=== PATIENT | female | born 1990 | race Caucasian/White ===

== ENCOUNTER 2019-02-18 11:37 | Inpatient (IN) ==
[2019-02-18] MEDS ORDERED: OXYTOCIN 30 UNITS/500 ML BAG IV PRN (13:58)
[2019-02-18] MEDS ORDERED: PENICILLIN G POTASSIUM 6 MU in DEXTROSE 5% 250 ML IV ONE (14:15)
[2019-02-18 14:31] LABS: Hematocrit (blood only) 38.6 % (37-47); Hemoglobin 13.8 g/dL (12.0-16.0); Mean Corpuscular Hemoglobin 33.9 pg (25-34); Mean Corpuscular Hgb Conc 35.8 g/dL (32-36); Mean Corpuscular Volume 94.8 fL (80-100); Platelet Count 166 K/uL (130-400); RDW Standard Deviation 44.7 fL (36.4-46.3); Red Blood Count 4.07 M/uL (4.2-5.4); White Blood Count 10.75 K/uL (4.8-10.8)
[2019-02-18] MEDS ORDERED: DINOPROSTONE 10 MG INSERT PV ONE (15:02)
--- NOTE | 2019-02-18 15:05 | Obstetrical Progress Note ---
Date of Service February 18, 2019 Subjective Admit Note 28 F P0000 at 40.6 weeks admitted for induction of labor for post-dates. Her GBS is negative. FHT Cat 1 with no contractions. Cervix is closed/50/- 3/vertex/posterior/firm. Will place Cervidil for cervical ripening. Results & Data Vital Signs (Past 12 Hours) Vital Signs Temp Pulse Resp BP 02/18/19 14:38 36.6 C 113 H 20 127/87
--- NOTE | 2019-02-18 15:21 | Obstetrical Progress Note ---
Date of Service February 18, 2019 Physical Exam Physical Exam: Cervidil placed vaginally FHT Cat 1 Results & Data Vital Signs (Past 12 Hours) Vital Signs Temp Pulse Resp BP 02/18/19 14:38 36.6 C 113 H 20 127/87
[2019-02-19] MEDS: LACTATED RINGER'S 1,000 ML IV PRN ×3 (00:51→13:30)
[2019-02-19] MEDS ORDERED: OXYTOCIN 30 UNITS/500 ML BAG IV PRN (02:34)
[2019-02-19] MEDS ORDERED: BUTORPHANOL TARTRATE 1 MG/ML VIAL IV PRN ×2 (03:56→03:57)
[2019-02-19] MEDS: PENICILLIN G POTASSIUM 3 MU in DEXTROSE 5% 100 ML IV PRN ×3 (04:57→13:09)
[2019-02-19] MEDS ORDERED: fentaNYL citrate 100 MCG/2 ML VIAL ONE ×2 (05:55→16:54)
[2019-02-19] MEDS ORDERED: ePHEDrine sulfate 50 MG/ML AMP ONE (05:55)
[2019-02-19] MEDS ORDERED: BUPIVACAINE 0.25% 30 ML VIAL ONE (05:56)
[2019-02-19] MEDS ORDERED: fentaNYL 2MCG/ML ROPIV 1.25MG/ML 100 ML BAG EPI ONE (05:56)
--- NOTE | 2019-02-19 06:49 | Anesthesiology Consultation ---
Date of Service February 19, 2019 Assessment & Plan Chart Review Chart Review: Acceptable Risk for Labor Epidural ASA ASA2 Proposed Anesthesia Risk / Benefits Reviewed With: PT / POA / Parent / Guardian, Accepts Plan and Informed Consent Obtained History Height/Weight Height: 5 ft 5 in Weight: 99.79 kg Allergies Allergy/AdvReac Type Severity Reaction Status Date / Time No Known Allergies Allergy Unverified 02/18/19 13:58 Medications Home Medications Medication Instructions Recorded Confirmed Last Taken [place]-3 Fish Oil 1,000 mg PO DAILY 02/18/19 02/18/19 02/17/19 21:30 Vitamin D3 10 mcg PO DAILY 02/18/19 02/18/19 02/17/19 21:30 cetirizine 10 mg PO DAILY 02/18/19 02/18/19 02/17/19 21:30 fluticasone propionate [Flonase 2 spray INTRANASAL DAILY 02/18/19 02/18/1902/07 21:30 Allergy Relief] vit no.[id number] 1 tab PO HS 02/18/19 02/18/19 02/17/19 21:30 [ Vitamin] Active Medications Generic Name Dose Route Start Last Admin Trade Name Freq PRN Reason Stop Dose Admin Butorphanol Tartrate 1 mg 02/19/19 03:56 02/19/19 04:13 Stadol IV 03/21/19 03:55 1 mg Q2R PRN Administration Pain Lactated Ringer's 1,000 mls @ 125 mls/hr 02/18/19 13:58 02/19/19 07:17 Lr IV 02/20/19 13:57 125 mls/hr .Q8H PRN Administration L&D Protocol Protocol Penicillin G Potassium 3 mu/ 106 mls @ 100 mls/hr 02/18/19 13:58 02/19/19 06:00 Dextrose IV 02/28/19 13:57 Infused Q4H PRN Titration Give until delivery Oxytocin 30 units in 500 mls @ 3 mls/hr 02/19/19 02:34 02/19/19 07:00 Pitocin IV 02/21/19 02:33 0.18 units/hr .Q24H PRN 3 mls/hr Labor Induction/Augmentation Titration Protocol 0.18 UNITS/HR Past Medical History Medical History (Updated 02/18/19 @ 14:19 by Becca Jiménez RN) Compartment syndrome of right lower extremity (~11/01/10) Fracture, phalanx, foot (~10/01/95) Exercise / Class Metabolic Activity II 4-5 Yardwork/Stairs/Walk up hill Past Family History Family History (Updated 02/18/19 @ 14:22 by Becca Jiménez RN) Father Hypertension Past Anesthesia History No Hx of Anesthesia Complications and No Family Hx of Anesthesia Complications History of PONV No Hx of PONV and No Hx of Motion Sickness Social History Smoking Status: Never smoker Do You Dip or Chew Tobacco: No Hx Alcohol Use: No Hx Substance Use: No Physical Exam Vital Signs Last Vital Signs Temp 36.4 C L 02/19/19 06:20 Pulse 94 H 02/19/19 07:21 Resp 18 02/19/19 06:20 BP 111/67 02/19/19 07:21 Pulse Ox 96 02/19/19 07:19 ENMT Mouth: no TMJ abnormality and no dentition abnormality Thyromental Distance: > or= 3.5 Finger Breadths Mallampati Class: II Neck neck extension not limited Respiratory normal respiratory effort; no respiratory distress Auscultation: lungs clear to auscultation bilaterally Cardiovascular Rate/Rhythm: regular rate and regular rhythm Neurologic moves all extremities Psychiatric Orientation: alert and oriented x 3 Testing Laboratory Results 02/18/19 14:16
[2019-02-19] MEDS ORDERED: NALBUPHINE HCL INJ 10 MG/ML AMP IV PRN (07:24)
[2019-02-19] MEDS ORDERED: ePHEDrine sulfate 50 MG/ML AMP IV PRN ×2 (07:24→17:22)
[2019-02-19] MEDS ORDERED: NALOXONE HCL 0.4 MG/1 ML VIAL/CARP IV PRN (07:24)
[2019-02-19] MEDS ORDERED: DiphenhydrAMINE HCL 50 MG/ML VIAL IV PRN ×2 (07:24→17:59)
[2019-02-19] MEDS ORDERED: ONDANSETRON INJ 2 MG/ML 2 ML VIAL IV PRN ×3 (07:24→17:59)
[2019-02-19] MEDS ORDERED: fentaNYL 2MCG/ML ROPIV 1.25MG/ML 100 ML BAG EPI PRN (07:24)
[2019-02-19] MEDS ORDERED: NALOXONE HCL 1 MG in SODIUM CHLORIDE 0.9% 1000ML 1,000 ML IV PRN (07:24)
--- NOTE | 2019-02-19 08:36 | Obstetrical Progress Note ---
Date of Service February 19, 2019 Subjective Met pt and spouse doing well induction for prolonged gestation On Pitocin last exam was 2-3cm epidural analgesia in place Results & Data Vital Signs (Past 12 Hours) Vital Signs Temp Pulse Resp BP Pulse Ox 02/19/19 08:34 74 100 02/19/19 08:29 72 97 02/19/19 08:24 74 96 02/19/19 08:23 77 123/83 02/19/19 08:19 72 96 02/19/19 08:14 87 98 02/19/19 08:09 88 97 02/19/19 08:06 82 149/88 H 02/19/19 08:04 79 97 02/19/19 08:00 81 111/79 02/19/19 07:59 74 97 02/19/19 07:55 78 124/77 02/19/19 07:54 82 98 02/19/19 07:51 73 122/70 02/19/19 07:49 81 97 02/19/19 07:45 78 120/79 02/19/19 07:44 79 96 02/19/19 07:41 87 108/72 02/19/19 07:39 87 97 02/19/19 07:35 81 124/66 02/19/19 07:34 86 96 02/19/19 07:30 80 114/66 02/19/19 07:29 75 97 02/19/19 07:25 82 122/71 02/19/19 07:24 88 98 02/19/19 07:23 96 H 113/67 02/19/19 07:21 94 H 111/67 02/19/19 07:19 82 109/66 96 02/19/19 07:17 84 119/63 02/19/19 07:15 93 H 118/65 02/19/19 07:14 91 H 97 02/19/19 07:13 97 H 121/77 02/19/19 07:10 93 H 137/92 02/19/19 07:09 92 H 97 02/19/19 07:04 95 H 98 02/19/19 06:59 96 H 99 02/19/19 06:54 101 H 98 02/19/19 06:21 90 139/88 02/19/19 06:20 36.4 C L 18 02/19/19 06:12 91 H 96 12/13/19 06:11 81 92 13/19 06:07 79 92 02/19/19 06:03 79 91 02/19/19 06:02 86 99 02/19/19 05:57 101 H 95 13/19 05:52 79 95 13/19 05:47 85 98 13/19 05:42 77 97 13/19 05:37 98 H 98 02/19/19 05:32 74 96 13/19 05:27 79 96 13/19 05:22 81 97 13/19 05:20 88 18 136/92 02/19/19 05:17 75 95 02/19/19 05:12 73 95 02/19/19 05:07 86 99 02/19/19 05:02 88 97 02/19/ 05:00 16 02/19/19 04:57 75 97 02/19/ 04:52 74 96 02/19/19 04:47 69 95 02/19/19 04:42 69 96 19 04:37 79 97 02/19/19 04:32 82 97 02/19/19 04:27 85 97 02/19/19 04:22 77 95 02/19/19 04:21 87 94 02/19/19 04:17 83 99 19 04:14 103 H 125/83 02/19/19 04:12 74 99 19 04:10 36.6 C 18 02/19/19 04:08 61 153/91 H 02/19/19 04:07 97 H 96 02/19/19 02:21 36.5 C 13/19 00:45 36.5 C 02/18/19 23:10 36.7 C 18 02/18/19 23:08 82 128/84
--- NOTE | 2019-02-19 13:29 | Obstetrical Progress Note ---
Date of Service February 19, 2019 Subjective Called to evaluate pt with CAT II strip VE; 5/90/-2 Pit 4Mu IUPC and scalp placed Fetus responded to scalp continue to monitor Results & Data Vital Signs (Past 12 Hours) Vital Signs Temp Pulse Resp BP Pulse Ox 02/19/19 13:24 87 99 02/19/19 13:23 92 H 126/81 02/19/19 13:19 77 99 02/19/19 13:14 79 99 02/19/19 13:09 76 113/67 99 02/19/19 13:04 87 98 02/19/19 12:59 80 97 02/19/19 12:54 80 98 02/19/19 12:53 86 106/72 02/19/19 12:49 82 98 02/19/19 12:46 20 02/19/19 12:44 83 98 02/19/19 12:40 73 110/75 02/19/19 12:39 70 98 02/19/19 12:34 80 98 02/19/19 12:29 69 98 02/19/19 12:26 78 121/80 02/19/19 12:24 82 22 98 02/19/19 12:19 81 97 02/19/19 12:14 88 97 02/19/19 12:09 75 96 02/19/19 12:08 74 122/82 02/19/19 12:04 73 96 02/19/19 11:59 72 97 02/19/19 11:54 68 96 02/19/19 11:53 70 117/76 02/19/19 11:49 75 96 02/19/19 11:44 91 H 97 02/19/19 11:39 71 108/71 98 02/19/19 11:34 68 97 02/19/19 11:29 78 98 02/19/19 11:24 85 98 02/19/19 11:23 83 20 124/83 02/19/19 11:19 82 98 02/19/19 11:14 89 99 02/19/19 11:09 76 128/77 98 02/19/19 11:06 36.9 C 02/19/19 11:04 83 98 02/19/19 10:59 81 98 02/19/19 10:54 95 H 97 02/19/19 10:53 88 110/65 12/13/19 10:49 78 98 12/13/19 10:46 20 12/13/19 10:44 64 97 12/13/19 10:39 69 97 12/13/19 10:38 71 111/67 12/13/19 10:34 64 96 12/13/19 10:29 70 98 12/13/19 10:24 79 98 12/13/19 10:23 76 110/64 12/13/19 10:19 77 99 12/13/19 10:16 20 /13/19 10:14 83 98 12/13/19 10:09 80 98 12/13/19 10:08 71 107/63 12/13/19 10:04 69 97 12/13/19 09:59 80 98 12/13/19 09:54 75 97 12/13/19 09:53 84 111/69 12/13/19 09:49 77 98 12/13/19 09:44 84 97 /13/19 09:39 70 97 /13/19 09:38 72 112/68 1213/19 09:34 66 96 12/13/19 09:29 67 96 12/13/19 09:24 72 97 12/13/19 09:23 69 111/65 12/13/19 09:21 36.7 C 20 //19 09:19 82 100 /13/19 09:14 67 98 12/13/19 09:10 81 110/73 12/13/19 09:09 79 100 /13/19 09:05 20 /13/19 09:04 70 99 12/13/19 08:59 71 98 13/19 08:54 65 110/62 100 12/13/19 08:51 20 /13/19 08:49 69 99 12/13/19 08:44 63 100 12/13/19 08:40 65 105/67 12/13/19 08:39 65 99 12/13/19 08:34 74 100 12/13/19 08:29 72 97 /13/19 08:24 74 96 12/13/19 08:23 77 123/83 12/13/19 08:21 20 12/13/19 08:19 72 96 12/13/19 08:14 87 98 13/19 08:09 88 97 12/13/19 08:06 82 20 149/88 H 02/19/19 08:04 79 97 02/19/19 08:00 81 111/79 02/19/19 07:59 74 97 02/19/19 07:55 78 124/77 02/19/19 07:54 82 98 02/19/19 07:51 73 20 122/70 02/19/19 07:49 81 97 02/19/19 07:45 78 120/79 02/19/19 07:44 79 96 02/19/19 07:41 87 108/72 02/19/19 07:39 87 97 02/19/19 07:35 81 20 124/66 02/19/19 07:34 86 96 02/19/19 07:30 80 114/66 02/19/19 07:29 75 97 02/19/19 07:25 82 122/71 02/19/19 07:24 88 98 02/19/19 07:23 96 H 113/67 02/19/19 07:21 94 H 111/67 02/19/19 07:20 36.6 C 20 02/19/19 07:19 82 109/66 96 02/19/19 07:17 84 119/63 02/19/19 07:15 93 H 118/65 02/19/19 07:14 91 H 97 02/19/19 07:13 97 H 121/77 02/19/19 07:10 93 H 137/92 02/19/19 07:09 92 H 97 02/19/19 07:04 95 H 98 02/19/19 06:59 96 H 99 02/19/19 06:54 101 H 98 02/19/19 06:21 90 139/88 02/19/19 06:20 36.4 C L 18 02/19/19 06:12 91 H 96 02/19/19 06:11 81 92 02/19/19 06:07 79 92 02/19/19 06:03 79 91 02/19/19 06:02 86 99 02/19/19 05:57 101 H 95 02/19/19 05:52 79 95 02/19/19 05:47 85 98 13/ 05:42 77 97 02/19/19 05:37 98 H 98 02/19/19 05:32 74 96 02/19/19 05:27 79 96 12/13/19 05:22 81 97 02/19/19 05:20 88 18 136/92 02/19/19 05:17 75 95 02/19/19 05:12 73 95 02/19/19 05:07 86 99 02/19/19 05:02 88 97 02/19/19 05:00 16 02/19/19 04:57 75 97 02/19/19 04:52 74 96 02/19/19 04:47 69 95 02/19/19 04:42 69 96 02/19/19 04:37 79 97 02/19/19 04:32 82 97 02/19/19 04:27 85 97 02/19/19 04:22 77 95 02/19/19 04:21 87 94 02/19/19 04:17 83 99 02/19/19 04:14 103 H 125/83 02/19/19 04:12 74 99 02/19/19 04:10 36.6 C 18 02/19/19 04:08 61 153/91 H 02/19/19 04:07 97 H 96 02/19/19 02:21 36.5 C
--- NOTE | 2019-02-19 14:02 | Obstetrical Progress Note ---
Date of Service February 19, 2019 Subjective Called by nurse to evaluate Cat Ii strip with dep variables pt is off resuscitation with oxygen and IVF given strip is improved Results & Data Vital Signs (Past 12 Hours) Vital Signs Temp Pulse Resp BP Pulse Ox 02/19/19 13:54 92 H 141/96 H 99 02/19/19 13:49 96 H 100 02/19/19 13:44 85 99 02/19/19 13:39 80 99 02/19/19 13:38 79 130/77 02/19/19 13:34 81 99 02/19/19 13:29 99 H 99 02/19/19 13:24 87 99 02/19/19 13:23 92 H 126/81 02/19/19 13:19 77 99 02/19/19 13:14 79 99 02/19/19 13:09 76 113/67 99 02/19/19 13:04 87 98 02/19/19 12:59 80 97 02/19/19 12:54 80 98 02/19/19 12:53 86 106/72 02/19/19 12:49 82 98 02/19/19 12:46 20 02/19/19 12:44 83 98 02/19/19 12:40 73 110/75 02/19/19 12:39 70 98 02/19/19 12:34 80 98 02/19/19 12:29 69 98 02/19/19 12:26 78 121/80 02/19/19 12:24 82 22 98 02/19/19 12:19 81 97 02/19/19 12:14 88 97 02/19/19 12:09 75 96 02/19/19 12:08 74 122/82 02/19/19 12:04 73 96 02/19/19 11:59 72 97 02/19/19 11:54 68 96 02/19/19 11:53 70 117/76 02/19/19 11:49 75 96 02/19/19 11:44 91 H 97 02/19/19 11:39 71 108/71 98 02/19/19 11:34 68 97 02/19/19 11:29 78 98 02/19/19 11:24 85 98 02/19/19 11:23 83 20 124/83 02/19/19 11:19 82 98 02/19/19 11:14 89 99 12/13/19 11:09 76 128/77 98 12/13/19 11:06 36.9 C 12/13/19 11:04 83 98 12/13/19 10:59 81 98 12/13/19 10:54 95 H 97 12/13/19 10:53 88 110/65 12/13/19 10:49 78 98 12/13/19 10:46 20 12/13/19 10:44 64 97 12/13/19 10:39 69 97 12/13/19 10:38 71 111/67 12/13/19 10:34 64 96 12/13/19 10:29 70 98 12/13/19 10:24 79 98 12/13/19 10:23 76 110/64 12/13/19 10:19 77 99 12/13/19 10:16 20 //19 10:14 83 98 12/13/19 10:09 80 98 12/13/19 10:08 71 107/63 12/13/19 10:04 69 97 12/13/19 09:59 80 98 12/13/19 09:54 75 97 12/13/19 09:53 84 111/69 12/13/19 09:49 77 98 12/13/19 09:44 84 97 /13/19 09:39 70 97 12/13/19 09:38 72 112/68 12/13/19 09:34 66 96 12/13/19 09:29 67 96 12/13/19 09:24 72 97 12/13/19 09:23 69 111/65 12/13/19 09:21 36.7 C 20 02/19/19 09:19 82 100 12/13/19 09:14 67 98 12/13/19 09:10 81 110/73 12/13/19 09:09 79 100 12/13/19 09:05 20 /13/19 09:04 70 99 12/13/19 08:59 71 98 12/13/19 08:54 65 110/62 100 12/13/19 08:51 20 12/13/19 08:49 69 99 12/13/19 08:44 63 100 12/13/19 08:40 65 105/67 12/13/19 08:39 65 99 12/13/19 08:34 74 100 12/13/19 08:29 72 97 12/13/19 08:24 74 96 02/19/19 08:23 77 123/83 02/19/19 08:21 20 02/19/19 08:19 72 96 02/19/19 08:14 87 98 02/19/19 08:09 88 97 02/19/19 08:06 82 20 149/88 H 02/19/19 08:04 79 97 02/19/19 08:00 81 111/79 02/19/19 07:59 74 97 02/19/19 07:55 78 124/77 02/19/19 07:54 82 98 02/19/19 07:51 73 20 122/70 02/19/19 07:49 81 97 02/19/19 07:45 78 120/79 02/19/19 07:44 79 96 02/19/19 07:41 87 108/72 02/19/19 07:39 87 97 02/19/19 07:35 81 20 124/66 02/19/19 07:34 86 96 02/19/19 07:30 80 114/66 02/19/19 07:29 75 97 02/19/19 07:25 82 122/71 02/19/19 07:24 88 98 02/19/19 07:23 96 H 113/67 02/19/19 07:21 94 H 111/67 02/19/19 07:20 36.6 C 20 02/19/19 07:19 82 109/66 96 02/19/19 07:17 84 119/63 02/19/19 07:15 93 H 118/65 02/19/19 07:14 91 H 97 02/19/19 07:13 97 H 121/77 02/19/19 07:10 93 H 137/92 02/19/19 07:09 92 H 97 02/19/19 07:04 95 H 98 02/19/19 06:59 96 H 99 02/19/19 06:54 101 H 98 02/19/19 06:21 90 139/88 02/19/19 06:20 36.4 C L 18 02/19/19 06:12 91 H 96 02/19/19 06:11 81 92 02/19/19 06:07 79 92 02/19/19 06:03 79 91 02/19/19 06:02 86 99 02/19/ 05:57 101 H 95 02/19/19 05:52 79 95 02/19/19 05:47 85 98 02/19/19 05:42 77 97 02/19/19 05:37 98 H 98 02/19/19 05:32 74 96 02/19/19 05:27 79 96 02/19/19 05:22 81 97 02/19/19 05:20 88 18 136/92 02/19/19 05:17 75 95 02/19/19 05:12 73 95 02/19/19 05:07 86 99 02/19/19 05:02 88 97 02/19/19 05:00 16 02/19/19 04:57 75 97 02/19/19 04:52 74 96 02/19/19 04:47 69 95 02/19/19 04:42 69 96 02/19/19 04:37 79 97 02/19/19 04:32 82 97 02/19/19 04:27 85 97 02/19/19 04:22 77 95 02/19/19 04:21 87 94 02/19/19 04:17 83 99 02/19/19 04:14 103 H 125/83 02/19/19 04:12 74 99 02/19/19 04:10 36.6 C 18 02/19/19 04:08 61 153/91 H 02/19/19 04:07 97 H 96 02/19/19 02:21 36.5 C
--- NOTE | 2019-02-19 14:42 | Obstetrical Progress Note ---
Date of Service February 19, 2019 Subjective Pt continues to have deep variable despite position changes will try amnioinfusion Results & Data Vital Signs (Past 12 Hours) Vital Signs Temp Pulse Resp BP Pulse Ox 02/19/19 14:39 93 H 100 02/19/19 14:38 96 H 138/84 02/19/19 14:34 102 H 100 02/19/19 14:29 97 H 100 02/19/19 14:25 92 H 133/74 02/19/19 14:24 89 100 02/19/19 14:19 96 H 100 02/19/19 14:14 91 H 100 02/19/19 14:09 106 H 136/90 100 02/19/19 14:04 102 H 100 02/19/19 13:59 97 H 100 02/19/19 13:54 92 H 141/96 H 99 02/19/19 13:49 96 H 100 02/19/19 13:46 20 02/19/19 13:44 85 99 02/19/19 13:39 80 99 02/19/19 13:38 79 130/77 02/19/19 13:34 81 99 02/19/19 13:29 99 H 99 02/19/19 13:24 87 99 02/19/19 13:23 92 H 126/81 02/19/19 13:19 77 99 02/19/19 13:16 36.9 C 20 02/19/19 13:14 79 99 02/19/19 13:09 76 113/67 99 02/19/19 13:04 87 98 02/19/19 12:59 80 97 02/19/19 12:54 80 98 02/19/19 12:53 86 106/72 02/19/19 12:49 82 98 02/19/19 12:46 20 02/19/19 12:44 83 98 02/19/19 12:40 73 110/75 02/19/19 12:39 70 98 02/19/19 12:34 80 98 02/19/19 12:29 69 98 02/19/19 12:26 78 121/80 02/19/19 12:24 82 22 98 02/19/19 12:19 81 97 02/19/19 12:14 88 97 02/19/19 12:09 75 96 02/19/19 12:08 74 122/82 12/13/19 12:04 73 96 13/19 11:59 72 97 13/19 11:54 68 96 12/13/19 11:53 70 117/76 1213/19 11:49 75 96 /13/19 11:44 91 H 97 13/19 11:39 71 108/71 98 13/19 11:34 68 97 13/19 11:29 78 98 1213/19 11:24 85 98 13/19 11:23 83 20 124/83 1213/19 11:19 82 98 13/ 11:14 89 99 13/ 11:09 76 128/77 98 13/ 11:06 36.9 C 02/19/19 11:04 83 98 02/19/ 10:59 81 98 02/19/19 10:54 95 H 97 02/19/19 10:53 88 110/65 13/19 10:49 78 98 13/19 10:46 20 02/19/19 10:44 64 97 13/19 10:39 69 97 13/19 10:38 71 111/67 02/19/19 10:34 64 96 13/19 10:29 70 98 13/19 10:24 79 98 13/19 10:23 76 110/64 1213/19 10:19 77 99 02/19/19 10:16 20 02/19/19 10:14 83 98 13/19 10:09 80 98 13/19 10:08 71 107/63 02/19/19 10:04 69 97 13/19 09:59 80 98 13/19 09:54 75 97 13/19 09:53 84 111/69 13/19 09:49 77 98 13/19 09:44 84 97 13/19 09:39 70 97 13/19 09:38 72 112/68 1213/19 09:34 66 96 13/19 09:29 67 96 13/19 09:24 72 97 13/19 09:23 69 111/65 1213/19 09:21 36.7 C 20 02/19/ 09:19 82 100 12/13/19 09:14 67 98 13/19 09:10 81 110/73 1213/19 09:09 79 100 13/19 09:05 20 02/19/19 09:04 70 99 02/19/19 08:59 71 98 02/19/19 08:54 65 110/62 100 02/19/ 08:51 20 02/19/ 08:49 69 99 02/19/19 08:44 63 100 02/19/19 08:40 65 105/67 02/19/19 08:39 65 99 02/19/19 08:34 74 100 02/19/ 08:29 72 97 02/19/19 08:24 74 96 02/19/ 08:23 77 123/83 02/19/19 08:21 20 02/19/ 08:19 72 96 02/19/ 08:14 87 98 02/19/ 08:09 88 97 02/19/19 08:06 82 20 149/88 H 02/19/19 08:04 79 97 02/19/19 08:00 81 111/79 02/19/19 07:59 74 97 02/19/19 07:55 78 124/77 02/19/19 07:54 82 98 19 07:51 73 20 122/70 02/19/19 07:49 81 97 02/19/19 07:45 78 120/79 02/19/19 07:44 79 96 02/19/19 07:41 87 108/72 02/19/19 07:39 87 97 02/19/19 07:35 81 20 124/66 02/19/19 07:34 86 96 02/19/19 07:30 80 114/66 02/19/19 07:29 75 97 13/19 07:25 82 122/71 13/19 07:24 88 98 13/19 07:23 96 H 113/67 02/19/19 07:21 94 H 111/67 02/19/19 07:20 36.6 C 20 02/19/19 07:19 82 109/66 96 13/19 07:17 84 119/63 1213/19 07:15 93 H 118/65 02/19/19 07:14 91 H 97 12/13/19 07:13 97 H 121/77 02/19/19 07:10 93 H 137/92 13/19 07:09 92 H 97 19 07:04 95 H 98 19 06:59 96 H 99 19 06:54 101 H 98 19 06:21 90 139/88 1213/19 06:20 36.4 C L 18 02/19/19 06:12 91 H 96 02/19/19 06:11 81 92 02/19/19 06:07 79 92 02/19/19 06:03 79 91 02/19/19 06:02 86 99 02/19/19 05:57 101 H 95 02/19/19 05:52 79 95 02/19/19 05:47 85 98 02/19/19 05:42 77 97 02/19/19 05:37 98 H 98 02/19/19 05:32 74 96 13/19 05:27 79 96 02/19/19 05:22 81 97 02/19/19 05:20 88 18 136/92 02/19/19 05:17 75 95 02/19/19 05:12 73 95 02/19/19 05:07 86 99 02/19/19 05:02 88 97 02/19/19 05:00 16 19 04:57 75 97 02/19/19 04:52 74 96 02/19/19 04:47 69 95 02/19/19 04:42 69 96 02/19/19 04:37 79 97 13/19 04:32 82 97 13/19 04:27 85 97 13/19 04:22 77 95 13/19 04:21 87 94 13/19 04:17 83 99 13/19 04:14 103 H 125/83 1213/19 04:12 74 99 1213/19 04:10 36.6 C 18 02/19/19 04:08 61 153/91 H 19 04:07 97 H 96
--- NOTE | 2019-02-19 15:27 | Obstetrical Progress Note ---
Date of Service February 19, 2019 Subjective IUPC removed. New IUPC primed and placed for amnio infusion VE; Unchanged Results & Data Vital Signs (Past 12 Hours) Vital Signs Temp Pulse Resp BP Pulse Ox 02/19/19 15:24 89 100 02/19/19 15:23 85 126/74 02/19/19 15:19 88 100 02/19/19 15:14 86 100 02/19/19 15:09 95 H 100 02/19/19 15:04 92 H 100 02/19/19 14:59 83 100 02/19/19 14:54 95 H 100 02/19/19 14:53 81 129/81 02/19/19 14:49 86 100 02/19/19 14:44 83 100 02/19/19 14:39 93 H 100 02/19/19 14:38 96 H 138/84 02/19/19 14:34 102 H 100 02/19/19 14:29 97 H 100 02/19/19 14:25 92 H 133/74 02/19/19 14:24 89 100 02/19/19 14:19 96 H 100 02/19/19 14:14 91 H 100 02/19/19 14:09 106 H 136/90 100 02/19/19 14:04 102 H 100 02/19/19 13:59 97 H 100 02/19/19 13:54 92 H 141/96 H 99 02/19/19 13:49 96 H 100 02/19/19 13:46 20 02/19/19 13:44 85 99 02/19/19 13:39 80 99 02/19/19 13:38 79 130/77 02/19/19 13:34 81 99 02/19/19 13:29 99 H 99 02/19/19 13:24 87 99 02/19/19 13:23 92 H 126/81 02/19/19 13:19 77 99 02/19/19 13:16 36.9 C 20 02/19/19 13:14 79 99 02/19/19 13:09 76 113/67 99 02/19/19 13:04 87 98 02/19/19 12:59 80 97 02/19/19 12:54 80 98 02/19/19 12:53 86 106/72 02/19/19 12:49 82 98 02/19/19 12:46 20 02/19/19 12:44 83 98 02/19/19 12:40 73 110/75 12 12:39 70 98 02/19/19 12:34 80 98 02/19/19 12:29 69 98 12 12:26 78 121/80 02/19/19 12:24 82 22 98 12 12:19 81 97 02/19/19 12:14 88 97 02/19/19 12:09 75 96 02/19/19 12:08 74 122/82 02/19/ 12:04 73 96 02/19/ 11:59 72 97 13/ 11:54 68 96 13/ 11:53 70 117/76 02/19/ 11:49 75 96 13/ 11:44 91 H 97 02/19/19 11:39 71 108/71 98 13/ 11:34 68 97 13/ 11:29 78 98 02/19/19 11:24 85 98 02/19/19 11:23 83 20 124/83 02/19/ 11:19 82 98 02/19/19 11:14 89 99 13 11:09 76 128/77 98 02/19/ 11:06 36.9 C 02/19/19 11:04 83 98 02/19/ 10:59 81 98 13/ 10:54 95 H 97 02/19/19 10:53 88 110/65 1213/19 10:49 78 98 13/19 10:46 20 02/19/19 10:44 64 97 13/19 10:39 69 97 13/19 10:38 71 111/67 02/19/19 10:34 64 96 1213/19 10:29 70 98 1213/19 10:24 79 98 12/13/19 10:23 76 110/64 1213/19 10:19 77 99 12/13/19 10:16 20 02/19/19 10:14 83 98 13/19 10:09 80 98 12/13/19 10:08 71 107/63 1213/19 10:04 69 97 13/19 09:59 80 98 13/19 09:54 75 97 12/13/19 09:53 84 111/69 12/13/19 09:49 77 98 12/13/19 09:44 84 97 12/13/19 09:39 70 97 12/13/19 09:38 72 112/68 12/13/19 09:34 66 96 12/13/19 09:29 67 96 12/13/19 09:24 72 97 12/13/19 09:23 69 111/65 12/13/19 09:21 36.7 C 20 1213/19 09:19 82 100 12/13/19 09:14 67 98 12/13/19 09:10 81 110/73 12/13/19 09:09 79 100 12/13/19 09:05 20 13/19 09:04 70 99 12/13/19 08:59 71 98 12/13/19 08:54 65 110/62 100 /13/19 08:51 20 /13/19 08:49 69 99 /13/19 08:44 63 100 /13/19 08:40 65 105/67 12/13/19 08:39 65 99 /13/19 08:34 74 100 12/13/19 08:29 72 97 12/13/19 08:24 74 96 12/13/19 08:23 77 123/83 1213/19 08:21 20 02/19/19 08:19 72 96 /13/19 08:14 87 98 /13/19 08:09 88 97 13/19 08:06 82 20 149/88 H 02/19/19 08:04 79 97 13/19 08:00 81 111/79 12/13/19 07:59 74 97 12/13/19 07:55 78 124/77 12/13/19 07:54 82 98 12/13/19 07:51 73 20 122/70 12/13/19 07:49 81 97 12/13/19 07:45 78 120/79 12/13/19 07:44 79 96 12/13/19 07:41 87 108/72 12/13/19 07:39 87 97 12/13/19 07:35 81 20 124/66 12/13/19 07:34 86 96 12/13/19 07:30 80 114/66 12/13/19 07:29 75 97 12/13/19 07:25 82 122/71 02/19/19 07:24 88 98 02/19/19 07:23 96 H 113/67 02/19/19 07:21 94 H 111/67 02/19/19 07:20 36.6 C 20 02/19/19 07:19 82 109/66 96 02/19/19 07:17 84 119/63 02/19/19 07:15 93 H 118/65 02/19/19 07:14 91 H 97 02/19/19 07:13 97 H 121/77 02/19/19 07:10 93 H 137/92 02/19/19 07:09 92 H 97 02/19/19 07:04 95 H 98 02/19/19 06:59 96 H 99 02/19/19 06:54 101 H 98 02/19/19 06:21 90 139/88 02/19/19 06:20 36.4 C L 18 02/19/19 06:12 91 H 96 02/19/19 06:11 81 92 02/19/19 06:07 79 92 02/19/19 06:03 79 91 02/19/19 06:02 86 99 02/19/19 05:57 101 H 95 02/19/19 05:52 79 95 02/19/19 05:47 85 98 02/19/19 05:42 77 97 02/19/19 05:37 98 H 98 02/19/19 05:32 74 96 02/19/19 05:27 79 96 02/19/19 05:22 81 97 02/19/19 05:20 88 18 136/92 02/19/19 05:17 75 95 02/19/19 05:12 73 95 02/19/19 05:07 86 99 02/19/19 05:02 88 97 02/19/19 05:00 16 02/19/19 04:57 75 97 02/19/19 04:52 74 96 02/19/19 04:47 69 95 02/19/19 04:42 69 96 02/19/19 04:37 79 97 02/19/19 04:32 82 97 02/19/19 04:27 85 97 02/19/19 04:22 77 95 02/19/19 04:21 87 94 02/19/19 04:17 83 99 02/19/19 04:14 103 H 125/83 02/19/19 04:12 74 99 02/19/19 04:10 36.6 C 18 02/19/19 04:08 61 153/91 H 02/19/19 04:07 97 H 96
[2019-02-19] MEDS ORDERED: CITRIC ACID/SODIUM CITRATE 15 ML UDC ONE (15:58)
--- NOTE | 2019-02-19 15:59 | Obstetrical Progress Note ---
Date of Service February 19, [address] Ni improvement with FH tracing discussed above with pt and spouse offered them c/sec Risk and benefits discussed both have agreed consent obatined will proceed Results & Data Vital Signs (Past 12 Hours) Vital Signs Temp Pulse Resp BP Pulse Ox 02/19/19 15:54 93 H 99 02/19/19 15:53 86 140/80 02/19/19 15:49 90 99 02/19/19 15:44 78 98 02/19/19 15:39 75 98 02/19/19 15:38 83 123/72 02/19/19 15:34 88 98 02/19/19 15:29 80 99 02/19/19 15:24 89 100 02/19/19 15:23 85 126/74 02/19/19 15:19 88 100 02/19/19 15:16 36.9 C 20 02/19/19 15:14 86 100 02/19/19 15:09 95 H 100 02/19/19 15:04 92 H 100 02/19/19 14:59 83 100 02/19/19 14:54 95 H 100 02/19/19 14:53 81 129/81 02/19/19 14:49 86 100 02/19/19 14:46 20 02/19/19 14:44 83 100 02/19/19 14:39 93 H 100 02/19/19 14:38 96 H 138/84 02/19/19 14:34 102 H 100 02/19/19 14:29 97 H 100 02/19/19 14:25 92 H 133/74 02/19/19 14:24 89 100 02/19/19 14:19 96 H 100 02/19/19 14:14 91 H 100 02/19/19 14:09 106 H 136/90 100 02/19/19 14:04 102 H 100 02/19/19 13:59 97 H 100 02/19/19 13:54 92 H 141/96 H 99 02/19/19 13:49 96 H 100 02/19/19 13:46 20 02/19/19 13:44 85 99 02/19/19 13:39 80 99 02/19/19 13:38 79 130/77 02/19/19 13:34 81 99 02/19/19 13:29 99 H 99 02/19/19 13:24 87 99 1213 13:23 92 H 126/81 12/ 13:19 77 99 1213 13:16 36.9 C 20 02/19/19 13:14 79 99 12 13:09 76 113/67 99 02/19/19 13:04 87 98 02/19/19 12:59 80 97 02/19/19 12:54 80 98 02/19/19 12:53 86 106/72 02/19/19 12:49 82 98 02/19/19 12:46 20 02/19/19 12:44 83 98 02/19/19 12:40 73 110/75 02/19/19 12:39 70 98 02/19/19 12:34 80 98 02/19/19 12:29 69 98 02/19/19 12:26 78 121/80 02/19/19 12:24 82 22 98 02/19/19 12:19 81 97 02/19/19 12:14 88 97 02/19/19 12:09 75 96 02/19/19 12:08 74 122/82 02/19/19 12:04 73 96 02/19/19 11:59 72 97 02/19/19 11:54 68 96 02/19/19 11:53 70 117/76 02/19/19 11:49 75 96 02/19/19 11:44 91 H 97 02/19/19 11:39 71 108/71 98 02/19/19 11:34 68 97 02/19/19 11:29 78 98 02/19/19 11:24 85 98 02/19/19 11:23 83 20 124/83 02/19/19 11:19 82 98 02/19/19 11:14 89 99 02/19/19 11:09 76 128/77 98 02/19/19 11:06 36.9 C 02/19/19 11:04 83 98 02/19/19 10:59 81 98 02/19/19 10:54 95 H 97 02/19/19 10:53 88 110/65 02/19/19 10:49 78 98 13/19 10:46 20 02/19/19 10:44 64 97 13/19 10:39 69 97 1319 10:38 71 111/67 12/13/19 10:34 64 96 12/13/19 10:29 70 98 12/13/19 10:24 79 98 12/13/19 10:23 76 110/64 12/13/19 10:19 77 99 12/13/19 10:16 20 02/19/19 10:14 83 98 12/13/19 10:09 80 98 12/13/19 10:08 71 107/63 12/13/19 10:04 69 97 12/13/19 09:59 80 98 12/13/19 09:54 75 97 12/13/19 09:53 84 111/69 12/13/19 09:49 77 98 13/19 09:44 84 97 13/19 09:39 70 97 13/19 09:38 72 112/68 1213/19 09:34 66 96 13/19 09:29 67 96 13/19 09:24 72 97 13/19 09:23 69 111/65 13/19 09:21 36.7 C 20 02/19/19 09:19 82 100 /13/19 09:14 67 98 13/19 09:10 81 110/73 1213/19 09:09 79 100 13/19 09:05 20 02/19/19 09:04 70 99 02/19/19 08:59 71 98 13/19 08:54 65 110/62 100 13/19 08:51 20 02/19/19 08:49 69 99 13/19 08:44 63 100 13/19 08:40 65 105/67 1213/19 08:39 65 99 13/19 08:34 74 100 13/19 08:29 72 97 /13/19 08:24 74 96 13/19 08:23 77 123/83 1213/19 08:21 20 02/19/19 08:19 72 96 1213/19 08:14 87 98 13/19 08:09 88 97 13/19 08:06 82 20 149/88 H 13/19 08:04 79 97 13/19 08:00 81 111/79 1213/19 07:59 74 97 12/13/19 07:55 78 124/77 1213/19 07:54 82 98 13/19 07:51 73 20 122/70 02/19/19 07:49 81 97 13/19 07:45 78 120/79 02/19/19 07:44 79 96 13/19 07:41 87 108/72 02/19/19 07:39 87 97 1319 07:35 81 20 124/66 13/19 07:34 86 96 19 07:30 80 114/66 13/19 07:29 75 97 02/19/19 07:25 82 122/71 13/19 07:24 88 98 02/19/19 07:23 96 H 113/67 02/19/19 07:21 94 H 111/67 02/19/19 07:20 36.6 C 20 02/19/19 07:19 82 109/66 96 02/19/19 07:17 84 119/63 02/19/19 07:15 93 H 118/65 02/19/19 07:14 91 H 97 02/19/19 07:13 97 H 121/77 02/19/19 07:10 93 H 137/92 19 07:09 92 H 97 19 07:04 95 H 98 19 06:59 96 H 99 02/19/19 06:54 101 H 98 19 06:21 90 139/88 02/19/19 06:20 36.4 C L 18 02/19/19 06:12 91 H 96 19 06:11 81 92 02/19/19 06:07 79 92 02/19/19 06:03 79 91 02/19/19 06:02 86 99 13/19 05:57 101 H 95 13/19 05:52 79 95 13/19 05:47 85 98 13/19 05:42 77 97 13/19 05:37 98 H 98 02/19/19 05:32 74 96 13/19 05:27 79 96 13/19 05:22 81 97 13/19 05:20 88 18 136/92 13/19 05:17 75 95 13/19 05:12 73 95 12/13/19 05:07 86 99 02/19/19 05:02 88 97 02/19/19 05:00 16 02/19/19 04:57 75 97 02/19/19 04:52 74 96 02/19/19 04:47 69 95 02/19/19 04:42 69 96 02/19/19 04:37 79 97 02/19/19 04:32 82 97 02/19/19 04:27 85 97 02/19/19 04:22 77 95 02/19/19 04:21 87 94 02/19/19 04:17 83 99 02/19/19 04:14 103 H 125/83 02/19/19 04:12 74 99 02/19/19 04:10 36.6 C 18 02/19/19 04:08 61 153/91 H 02/19/19 04:07 97 H 96
[2019-02-19] MEDS ORDERED: LACTATED RINGER'S 1,000 ML IV SCH ×2 (16:00→17:00)
[2019-02-19] MEDS ORDERED: LIDOCAINE/EPINEPHRINE 2% 1:200,000 20 ML SDV ONE (16:10)
[2019-02-19] MEDS ORDERED: CEFAZOLIN 2000MG 2,000 MG/15 ML SYR IV SCH (16:30)
[2019-02-19] MEDS ORDERED: CITRIC ACID/SODIUM CITRATE 15 ML UDC PO SCH (16:30)
[2019-02-19 16:37] LABS: Basophils # (auto) 0.01 K/uL (0-0.2); Basophils % (auto) 0.1 %; Eosinophils # (auto) 0.02 K/uL (0-0.5); Eosinophils % (auto) 0.1 %; Hematocrit (blood only) 39.9 % (37-47); Hemoglobin 14.2 g/dL (12.0-16.0); Immature Granulocytes # (auto) 0.07 K/uL (0.00-0.02); Immature Granulocytes % (auto) 0.4 %; Lymphocytes # (auto) 1.55 K/uL (1.2-3.4); Lymphocytes % (auto) 8.2 %; Mean Corpuscular Hemoglobin 33.9 pg (25-34); Mean Corpuscular Hgb Conc 35.6 g/dL (32-36); Mean Corpuscular Volume 95.2 fL (80-100); Mean Platelet Volume 10.2 fL (7.4-10.4); Monocytes # (auto) 1.32 K/uL (0.11-0.59); Neutrophils # (auto) 16.01 K/uL (1.4-6.5); Neutrophils % (auto) 84.2 %; Platelet Count 153 K/uL (130-400); RDW Standard Deviation 45.2 fL (36.4-46.3); Red Blood Count 4.19 M/uL (4.2-5.4); White Blood Count 18.98 K/uL (4.8-10.8)
[2019-02-19] MEDS ORDERED: OXYTOCIN 10 UNITS/ML VIAL ONE (17:05)
[2019-02-19] MEDS ORDERED: METHYLERGONOVINE MALEATE 0.2 MG/ML AMP ONE (17:07)
[2019-02-19] MEDS ORDERED: ONDANSETRON INJ 2 MG/ML 2 ML VIAL ONE ×2 (17:10→17:34)
[2019-02-19] MEDS ORDERED: ATROPINE SULFATE 0.1 MG/ML 10ML SYR IV PRN (17:22)
[2019-02-19] MEDS ORDERED: fentaNYL citrate 100 MCG/2 ML VIAL IV PRN (17:22)
[2019-02-19] MEDS ORDERED: HYDROmorphone INJ 2 MG/ML SYR/VIAL IV PRN (17:22)
[2019-02-19] MEDS ORDERED: CHLOROPROCAINE HCL 3% 20 ML VIAL ONE (17:26)
[2019-02-19] MEDS ORDERED: KETOROLAC 30 MG/ML VIAL ONE (17:30)
[2019-02-19] MEDS ORDERED: miSOPROStoL 200 MCG TAB ONE (17:32)
[2019-02-19 17:50] LABS: Base Excess Cord Venous Blood -1.5 mEq/L (-7.7-1.9); Cord Venous Blood HCO3 23 mmol/L (18.4-26.8); Cord Venous Blood PCO2 39 mmHg (30.4-57.2); Cord Venous Blood PO2 30 mmHg (14.1-43.3); Cord Venous Blood pH 7.39 (7.20-7.44)
[2019-02-19] MEDS ORDERED: HYDROCORTISONE ACETATE 25 MG SUPP PR PRN (17:59)
[2019-02-19] MEDS ORDERED: BENZOCAINE 20% AER SPR 82.5 GM CAN EXT PRN (17:59)
[2019-02-19] MEDS ORDERED: PROMETHAZINE HCL 25 MG in SODIUM CHLORIDE 0.9% 50 ML IV PRN (17:59)
[2019-02-19] MEDS ORDERED: SUPERCREAM 0.870% 15 GM JAR EXT PRN (17:59)
[2019-02-19] MEDS ORDERED: SENNA 8.6 MG TAB PO PRN (17:59)
[2019-02-19] MEDS ORDERED: DIPHTHERIA/TETANUS/PERTUSSIS 0.5 ML SYR/VIAL IM ONE (17:59)
[2019-02-19] MEDS ORDERED: MAGNESIUM HYDROXIDE SUSP 30 ML UDC PO PRN (17:59)
[2019-02-19] MEDS ORDERED: miSOPROStoL 200 MCG TAB PR ONE ×2 (18:01→18:07)
[2019-02-19] MEDS ORDERED: OXYTOCIN 10 UNITS/ML VIAL IM ONE (18:07)
--- NOTE | 2019-02-19 18:52 | Anesthesiology Progress Note ---
Date of Service February 19, 2019 Anesthesia Post Procedure Vital Signs Vital Signs: Temp Pulse Resp BP Pulse Ox 02/19/19 18:50 89 99 02/19/19 18:48 86 144/74 H 02/19/19 18:45 87 98 02/19/19 18:40 88 20 99 02/19/19 18:37 83 130/67 02/19/19 18:35 87 99 02/19/19 18:30 87 20 99 02/19/19 18:25 94 H 98 02/19/19 18:20 91 H 20 96 02/19/19 18:17 89 125/66 94 02/19/19 18:15 89 95 02/19/19 18:11 105 H 90 02/19/19 18:10 91 H 20 95 02/19/19 18:05 92 H 97 02/19/19 18:02 88 93 02/19/19 18:00 92 H 20 109/81 97 02/19/19 17:55 88 96 02/19/19 17:51 87 94 02/19/19 17:50 36.7 C 86 20 115/64 94 02/19/19 16:29 97 H 134/88 99 02/19/19 16:24 102 H 141/87 H 99 02/19/19 16:19 97 H 99 02/19/19 16:14 87 98 02/19/19 16:09 87 132/84 99 02/19/19 16:04 90 99 02/19/19 15:59 92 H 99 02/19/19 15:54 93 H 99 02/19/19 15:53 86 140/80 02/19/19 15:49 90 99 02/19/19 15:46 20 02/19/19 15:44 78 98 02/19/19 15:39 75 98 02/19/19 15:38 83 123/72 02/19/19 15:34 88 98 02/19/19 15:29 80 99 02/19/19 15:24 89 100 02/19/19 15:23 85 126/74 02/19/19 15:19 88 100 02/19/19 15:16 36.9 C 20 02/19/19 15:14 86 100 02/19/19 15:09 95 H 100 02/19/19 15:04 92 H 100 02/19/19 14:59 83 100 02/19/ 14:54 95 H 100 02/19/19 14:53 81 129/81 12/ 14:49 86 100 02/19/19 14:46 20 02/19/19 14:44 83 100 02/19/19 14:39 93 H 100 02/19/19 14:38 96 H 138/84 02/19/19 14:34 102 H 100 02/19/19 14:29 97 H 100 02/19/19 14:25 92 H 133/74 02/19/19 14:24 89 100 13 14:19 96 H 100 02/19/19 14:14 91 H 100 02/19/19 14:09 106 H 136/90 100 02/19/19 14:04 102 H 100 02/19/19 13:59 97 H 100 02/19/19 13:54 92 H 141/96 H 99 02/19/19 13:49 96 H 100 02/19/19 13:46 20 02/19/19 13:44 85 99 02/19/19 13:39 80 99 02/19/19 13:38 79 130/77 02/19/19 13:34 81 99 13/ 13:29 99 H 99 02/19/19 13:24 87 99 02/19/19 13:23 92 H 126/81 02/19/19 13:19 77 99 02/19/19 13:16 36.9 C 20 02/19/19 13:14 79 99 02/19/19 13:09 76 113/67 99 02/19/19 13:04 87 98 13 12:59 80 97 1319 12:54 80 98 13/19 12:53 86 106/72 02/19/19 12:49 82 98 1213/19 12:46 20 02/19/ 12:44 83 98 1213/19 12:40 73 110/75 1213/19 12:39 70 98 1213/19 12:34 80 98 /13/19 12:29 69 98 12/13/ 12:26 78 121/80 1213/19 12:24 82 22 98 1213/ 12:19 81 97 02/19/19 12:14 88 97 02/19/19 12:09 75 96 12/13/ 12:08 74 122/82 02/19/19 12:04 73 96 13/19 11:59 72 97 13/19 11:54 68 96 1213/19 11:53 70 117/76 1213/19 11:49 75 96 13/19 11:44 91 H 97 13/19 11:39 71 108/71 98 13/19 11:34 68 97 13/19 11:29 78 98 1213/ 11:24 85 98 13/19 11:23 83 20 124/83 02/19/ 11:19 82 98 02/19/19 11:14 89 99 02/19/19 11:09 76 128/77 98 02/19/19 11:06 36.9 C 02/19/19 11:04 83 98 02/19/19 10:59 81 98 13/ 10:54 95 H 97 02/19/19 10:53 88 110/65 02/19/19 10:49 78 98 13/19 10:46 20 02/19/19 10:44 64 97 13/19 10:39 69 97 13/19 10:38 71 111/67 02/19/ 10:34 64 96 02/19/19 10:29 70 98 02/19/19 10:24 79 98 13/19 10:23 76 110/64 12/19 10:19 77 99 02/19/19 10:16 20 02/19/19 10:14 83 98 02/19/19 10:09 80 98 13/19 10:08 71 107/63 02/19/19 10:04 69 97 13/19 09:59 80 98 13/19 09:54 75 97 13/19 09:53 84 111/69 13/19 09:49 77 98 13/19 09:44 84 97 13/19 09:39 70 97 13/19 09:38 72 112/68 1213/19 09:34 66 96 1213/19 09:29 67 96 13/19 09:24 72 97 13/19 09:23 69 111/65 1213/19 09:21 36.7 C 20 02/19/19 09:19 82 100 02/19/ 09:14 67 98 02/19/19 09:10 81 110/73 02/19/19 09:09 79 100 02/19/19 09:05 20 02/19/19 09:04 70 99 02/19/19 08:59 71 98 02/19/19 08:54 65 110/62 100 02/19/19 08:51 20 02/19/19 08:49 69 99 02/19/19 08:44 63 100 02/19/19 08:40 65 105/67 02/19/19 08:39 65 99 02/19/19 08:34 74 100 02/19/19 08:29 72 97 02/19/19 08:24 74 96 02/19/19 08:23 77 123/83 02/19/19 08:21 20 02/19/19 08:19 72 96 02/19/19 08:14 87 98 02/19/19 08:09 88 97 02/19/19 08:06 82 20 149/88 H 02/19/19 08:04 79 97 02/19/19 08:00 81 111/79 02/19/19 07:59 74 97 02/19/19 07:55 78 124/77 02/19/19 07:54 82 98 02/19/19 07:51 73 20 122/70 02/19/19 07:49 81 97 02/19/19 07:45 78 120/79 02/19/19 07:44 79 96 02/19/19 07:41 87 108/72 02/19/19 07:39 87 97 19 07:35 81 20 124/66 02/19/19 07:34 86 96 02/19/19 07:30 80 114/66 02/19/19 07:29 75 97 19 07:25 82 122/71 02/19/19 07:24 88 98 02/19/19 07:23 96 H 113/67 19 07:21 94 H 111/67 02/19/19 07:20 36.6 C 20 02/19/19 07:19 82 109/66 96 02/19/19 07:17 84 119/63 02/19/19 07:15 93 H 118/65 02/19/19 07:14 91 H 97 02/19/19 07:13 97 H 121/77 02/19/19 07:10 93 H 137/92 02/19/19 07:09 92 H 97 02/19/19 07:04 95 H 98 02/19/19 06:59 96 H 99 02/19/19 06:54 101 H 98 02/19/19 06:21 90 139/88 02/19/19 06:20 36.4 C L 18 02/19/19 06:12 91 H 96 02/19/19 06:11 81 92 02/19/19 06:07 79 92 02/19/19 06:03 79 91 02/19/19 06:02 86 99 02/19/19 05:57 101 H 95 02/19/19 05:52 79 95 02/19/19 05:47 85 98 02/19/19 05:42 77 97 02/19/19 05:37 98 H 98 02/19/19 05:32 74 96 02/19/19 05:27 79 96 02/19/19 05:22 81 97 02/19/19 05:20 88 18 136/92 02/19/19 05:17 75 95 02/19/19 05:12 73 95 02/19/19 05:07 86 99 02/19/19 05:02 88 97 02/19/19 05:00 16 02/19/19 04:57 75 97 02/19/19 04:52 74 96 02/19/19 04:47 69 95 02/19/19 04:42 69 96 02/19/19 04:37 79 97 02/19/19 04:32 82 97 02/19/19 04:27 85 97 02/19/19 04:22 77 95 02/19/19 04:21 87 94 02/19/19 04:17 83 99 02/19/19 04:14 103 H 125/83 02/19/19 04:12 74 99 02/19/19 04:10 36.6 C 18 02/19/19 04:08 61 153/91 H 02/19/19 04:07 97 H 96 02/19/19 02:21 36.5 C 02/19/19 00:45 36.5 C 02/18/19 23:10 36.7 C 18 02/18/19 23:08 82 128/84 02/18/19 19:52 36.8 C 20 02/18/19 19:42 87 122/82 Pain Intensity Abdomen: Pain Intensity: 3 Transfer of Care Handoff Completed per policy Notes Mental Status: alert / awake / arousable and participated in evaluation Patient Amnestic to Procedure: Yes Nausea / Vomiting: adequately controlled Pain: adequately controlled Airway Patency, RR, SpO2: stable & adequate BP & HR: stable & adequate Hydration State: stable & adequate Anesthetic Complications: no major complications apparent and Pt Satisfied with anesthetic care
--- NOTE | 2019-02-19 19:31 | Operative Report ---
DATE OF OPERATION: 02/19/2019 INDICATIONS FOR SURGERY: 1. at term. 2. intolerance of labor with a persistent category II strip. 3. Failed amnioinfusion. SURGEON: Zeus Ruby MD LAP MAKER: Dr. Pino. ESTIMATED BLOOD LOSS: 500 mL. URINE OUTPUT: 50 mL clear urine at end of procedure. INTRAVENOUS FLUIDS: 800. FINDINGS: Live with nuchal cord x1. Details of 's weight and Apgars in the pediatric record. Uterus, ovaries and adnexa appeared grossly normal. COMPLICATIONS: None. DRAINS: Zhao catheter. PATHOLOGY: Placenta. DESCRIPTION OF PROCEDURE: The patient was taken to the operating room where she was prepped and draped in normal sterile fashion. Timeout was called. A Pfannenstiel incision is made with a scalpel and carried down to the fascia. Fascia was incised in the midline and extended laterally on both sides. Fascia is dissected off the rectus abdominus muscle. Peritoneum was identified and entered sharply. Once inside the abdomen, findings were as dictated above. An Gary retractor was placed in the abdomen. The vesicouterine peritoneum was sharply dissected off the lower segment of the uterus. A lower transverse incision was made in the uterus and extended laterally on both sides with bandage scissors. 's head is delivered. Nuchal cord was reduced. was delivered. Cord was clamped and cut and handed over to the pediatric team. Details of the infant's weight and Apgars are in the pediatric record. Placenta was manually removed. Uterus was exteriorized and cleared of all clots and debris. Uterus was closed in 2 layers using Vicryl stitch. There was good hemostasis post repair. Vesicouterine peritoneum was reapproximated with plain suture. Copious amount of irrigation was used to irrigate the abdomen. The Gary retractor was removed. Peritoneum was closed with plain suture. Zersqs-jb-[id number] sutures were used to close the rectus abdominus muscle. Fascia was closed in a running fashion using Vicryl stitch. SubQ space was reapproximated using plain suture and skin was closed with earl. All instruments were removed from the abdomen and accounted for x2 including sponges, needles and retractors. Baby and mother are doing well in recovery. I attest to the content of the Intraoperative Record and any orders documented therein. Any exception s are noted below.
[2019-02-19] MEDS ORDERED: OXYTOCIN 20 UNITS in LACTATED RINGER'S 1,000 ML IV SCH (20:45)
[2019-02-19] MEDS: IBUPROFEN 600 MG TAB PO PRN (22:32)
[2019-02-19] MEDS: DOCUSATE SODIUM 100 MG CAP PO SCH (22:34)
[2019-02-19] MEDS: SIMETHICONE 80 MG CHEW PO SCH (22:35)
[2019-02-20] MEDS: IBUPROFEN 600 MG TAB PO PRN ×5 (03:12→20:49)
[2019-02-20] MEDS: OXYCODONE/ACETAMINOPHEN 5mg/325mg TAB PO PRN ×4 (04:50→20:50)
[2019-02-20 07:04] LABS: Basophils # (auto) 0.01 K/uL (0-0.2); Basophils % (auto) 0.1 %; Eosinophils # (auto) 0.07 K/uL (0-0.5); Eosinophils % (auto) 0.5 %; Hematocrit (blood only) 34.6 % (37-47); Hemoglobin 11.9 g/dL (12.0-16.0); Immature Granulocytes # (auto) 0.05 K/uL (0.00-0.02); Immature Granulocytes % (auto) 0.3 %; Lymphocytes # (auto) 1.54 K/uL (1.2-3.4); Lymphocytes % (auto) 9.9 %; Mean Corpuscular Hemoglobin 33.5 pg (25-34); Mean Corpuscular Hgb Conc 34.4 g/dL (32-36); Mean Corpuscular Volume 97.5 fL (80-100); Mean Platelet Volume 9.7 fL (7.4-10.4); Monocytes % (auto) 7.1 %; Neutrophils # (auto) 12.75 K/uL (1.4-6.5); Neutrophils % (auto) 82.1 %; Platelet Count 139 K/uL (130-400); RDW Coefficient of Variation 13.1 % (11.5-14.5); RDW Standard Deviation 46.8 fL (36.4-46.3); Red Blood Count 3.55 M/uL (4.2-5.4); White Blood Count 15.52 K/uL (4.8-10.8)
[2019-02-20] MEDS: DOCUSATE SODIUM 100 MG CAP PO SCH ×2 (08:56→20:16)
[2019-02-20] MEDS: FERROUS SULFATE 325 MG TAB PO SCH (08:56)
[2019-02-20] MEDS: PRENATAL VITAMIN 1 TAB PO SCH (08:56)
[2019-02-20] MEDS: SIMETHICONE 80 MG CHEW PO SCH ×4 (08:58→20:16)
[2019-02-20] MEDS ORDERED: bisacodyL 5 MG TABEC PO SCH (20:00)
[2019-02-21] MEDS: IBUPROFEN 600 MG TAB PO PRN ×6 (01:23→22:08)
[2019-02-21] MEDS: OXYCODONE/ACETAMINOPHEN 5mg/325mg TAB PO PRN ×6 (01:23→22:09)
[2019-02-21 06:47] LABS: Hematocrit (blood only) 32.7 % (37-47); Hemoglobin 11.5 g/dL (12.0-16.0)
[2019-02-21] MEDS: SIMETHICONE 80 MG CHEW PO SCH ×4 (08:57→21:56)
[2019-02-21] MEDS: PRENATAL VITAMIN 1 TAB PO SCH (08:57)
[2019-02-21] MEDS: DOCUSATE SODIUM 100 MG CAP PO SCH ×2 (08:57→21:56)
[2019-02-21] MEDS: FERROUS SULFATE 325 MG TAB PO SCH (08:58)
--- NOTE | 2019-02-21 13:38 | Obstetrical Progress Note ---
Date of Service February 21, 2019 Physical Exam Physical Exam: abdomen soft and non tender passing flatus no calf tenderness ambulating well vaginal bleeding scant hgb 11.[address] Results & Data Vital Signs (Past 12 Hours) Vital Signs Temp Pulse Pulse Resp BP BP Pulse Ox 02/21/19 12:50 36.9 C 70 18 112/70 97 02/21/19 07:40 36.4 C L 70 18 112/74 97
[2019-02-21] MEDS ORDERED: bisacodyL 10 MG SUPP PR PRN (17:59)
[2019-02-21 20:14] VITALS: O2SAT 99
[2019-02-22] MEDS: IBUPROFEN 600 MG TAB PO PRN ×4 (02:01→18:22)
[2019-02-22] MEDS: OXYCODONE/ACETAMINOPHEN 5mg/325mg TAB PO PRN ×4 (02:02→18:22)
[2019-02-22] MEDS: SIMETHICONE 80 MG CHEW PO SCH ×4 (08:24→21:24)
[2019-02-22] MEDS: FERROUS SULFATE 325 MG TAB PO SCH (08:24)
[2019-02-22] MEDS: PRENATAL VITAMIN 1 TAB PO SCH (08:25)
[2019-02-22] MEDS: DOCUSATE SODIUM 100 MG CAP PO SCH ×2 (08:25→21:24)
--- NOTE | 2019-02-22 10:37 | Obstetrical Progress Note ---
Date of Service February 22, 2019 Results & Data Vital Signs (Past 12 Hours) Vital Signs Temp Pulse Resp BP Pulse Ox 02/22/19 08:00 37.1 C 94 H 18 117/79 99 02/21/19 23:45 36.5 C 75 20 114/75 99
--- NOTE | 2019-02-22 10:38 | Obstetrical Progress Note ---
Date of Service February 22, 2019 Assessment & Plan (1) delivery delivered: c/sec day #3 pt doing well anticipate disc today Subjective Ambulation: ambulating normally Voiding: no voiding problems Passing Gas:: Yes Diet Tolerance:: clear liquids Lochia:: Small Feeding Type:: breast feeding Review of Systems All systems reviewed & are unremarkable except as noted in HPI & below Physical Exam Constitutional WD/WN, vitals as above well developed and well nourished Eyes PERRL, conjunctivae normal, anicteric sclerae ENMT external ear and nose normal, oropharynx normal Neck trachea midline, no thyromegaly Respiratory normal respiratory effort, lungs clear to auscultation Cardiovascular RRR, no murmur, no edema Chest (Breasts) normal inspection/palpation of breasts Gastrointestinal (Abdomen) normal bowel sounds, soft, nontender, no hepatosplenomegaly Musculoskeletal no cyanosis or clubbing, extremities motor strength 5/5 Skin no rashes, warm and dry + incision (Clean,dry and intact) Neurologic patellar DTR's 2+ bilat, sensation intact Psychiatric A+Ox3, euthymic affect Genitourinary normal external appearance Lymphatic no cervical or axillary lymphadenopathy Results & Data Vital Signs (Past 12 Hours) Vital Signs Temp Pulse Resp BP Pulse Ox 02/22/19 08:00 37.1 C 94 H 18 117/79 99 02/21/19 23:45 36.5 C 75 20 114/75 99
--- NOTE | 2019-02-22 11:53 | Discharge Summary ---
DATE OF ADMISSION: 02/18/2019 DATE OF DISCHARGE: 02/22/2019 CHIEF COMPLAINT: at term. HISTORY OF PRESENT ILLNESS: This is a 28-year-old G1, P0 who presented to labor and delivery, she was admitted for labor. The patient went on to progress, but had arrest of labor on 02/19/2019 at around 1600 hours. heart rate began to be category 2 strip. She was given amnioinfusion. This did not improve the heart tracing. Decision was therefore made to proceed to section. The patient underwent section where she delivered a live , weight and Apgars in the pediatric and surgical records respectively. Surgery was unremarkable. The patient did well on postop day 1, which was 02/20/2019. Patient met all milestones for day 1 postop. She was able to ambulate, tolerate p.o. food and meds. Today is 02/22/2019, and patient has been discharged to home in stable condition. PAST MEDICAL HISTORY: 1. History of compartment syndrome of the right lower leg. 2. History of fracture of the phalanx. PAST SURGICAL HISTORY: Prior section. FAMILY HISTORY: Hypertension. SOCIAL HISTORY: The patient is . Denies tobacco, drug or alcohol use. ALLERGIES: No known drug allergies. VITAL SIGNS: Today, the patient's vital signs as follows: Blood pressure is 117/79, pulse is 94, respirations 18, temperature 37.1. Labs on 02/21/2019 as follows: Hemoglobin is 11.5, hematocrit is 32.7. PHYSICAL EXAMINATION: GENERAL: Well-developed, well-nourished white female in no acute distress. HEART: S1, S2, regular rhythm and rate. LUNGS: Clear to auscultation bilaterally. ABDOMEN: Nontender, nondistended. Incision clean, dry and intact. Positive bowel sounds. EXTREMITIES: No cyanosis, clubbing or edema. CONDITION ON DISCHARGE: Stable. OPERATION: Primary section. DISCHARGE DIAGNOSIS: Postoperative section. PLAN ON DISCHARGE: The patient is discharged home with instructions regarding activity, diet and followup appointment. NATE
[2019-02-22 19:31] VITALS: TEMP 97.9
[2019-02-22 21:09] VITALS: BP 133/84; PULSE 88
== END 2019-02-22 22:00 | disposition home or self-care (01) | DRG 788 ==
LOC: 4S1 13:51 → 4N 02-19 19:07

== ENCOUNTER 2020-11-14 05:39 | Inpatient (IN) ==
--- NOTE | 2020-11-10 11:37 | Anesthesiology Consultation ---
Date of Service November 10, 2020 Assessment & Plan (1) Encounter for pre-operative examination: Chart Review Chart Review: core checker initiated Per nursing assessment 11/10/2020, patient denies any recent travel. 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 Student has not been tested. Pt does not have any symptoms. No known Covid positive contacts or Covid related symptoms. No known Covid infection in the past 90 days. Pt is vaccinate for Covid. Preop Covid testing scheduled 11/11/20= will await results History Surgery Operation Date: 11/14/20 07:30 Proposed Procedures p Repeat Section - Zeus Ruby MD Height/Weight Height: 5 ft 5 in Weight: 97.522 kg Allergies Allergy/AdvReac Type Severity Reaction Status Date / Time No Known Allergies Allergy Unverified 11/10/20 11:03 Medications Home Medications Medication Instructions Recorded Confirmed Last Taken Vitamin D3 10 mcg PO DAILY 02/18/19 11/10/20 02/17/19 21:30 cetirizine 10 mg tablet 10 mg PO DAILY 02/18/19 11/10/20 02/17/19 21:30 fluticasone propionate 50 2 spray INTRANASAL DAILY 02/18/19 11/10/20 02/16/19 21:30 mcg/actuation nasal spray,suspension (Flonase Allergy Relief) vits no.124-ferrous fum 1 tab PO HS 02/18/19 11/10/20 02/17/19 21:30 27 mg iron-folic acid 800 mcg tablet ( Vitamin) ibuprofen 600 mg tablet 600 mg PO Q6H #30 tab 02/22/19 11/10/20 Unknown Past Medical History Medical History Fracture, phalanx, foot (~10/01/95) Past Family History Family History Father Hypertension Past Surgical History Surgical History Compartment syndrome of right lower extremity (~11/01/10) lower right leg surgery Hx of section Social History Smoking Status: Never smoker Do You Dip or Chew Tobacco: No Hx Alcohol Use: No Hx Substance Use: No substance use type: does not use
[2020-11-14] MEDS ORDERED: CITRIC ACID/SODIUM CITRATE 15 ML UDC PO SCH (06:00)
[2020-11-14] MEDS ORDERED: LACTATED RINGER'S 1,000 ML IV SCH (06:00)
[2020-11-14] MEDS ORDERED: ceFAZolin 2,000 MG in SYRINGE 0 ML IV SCH (06:00)
[2020-11-14 06:19] LABS: Basophils # (auto) 0.01 K/uL (0-0.2); Basophils % (auto) 0.1 %; Eosinophils # (auto) 0.05 K/uL (0-0.5); Eosinophils % (auto) 0.4 %; Hematocrit (blood only) 39.5 % (37-47); Hemoglobin 14.2 g/dL (12.0-16.0); Immature Granulocytes # (auto) 0.05 K/uL (0.00-0.02); Immature Granulocytes % (auto) 0.4 %; Lymphocytes # (auto) 1.83 K/uL (1.2-3.4); Lymphocytes % (auto) 15.9 %; Mean Corpuscular Hemoglobin 33.6 pg (25-34); Mean Corpuscular Hgb Conc 35.9 g/dL (32-36); Mean Corpuscular Volume 93.6 fL (80-100); Mean Platelet Volume 9.9 fL (7.4-10.4); Monocytes # (auto) 0.81 K/uL (0.11-0.59); Neutrophils # (auto) 8.77 K/uL (1.4-6.5); Neutrophils % (auto) 76.2 %; Platelet Count 165 K/uL (130-400); RDW Coefficient of Variation 13.3 % (11.5-14.5); RDW Standard Deviation 45.2 fL (36.4-46.3); Red Blood Count 4.22 M/uL (4.2-5.4); White Blood Count 11.52 K/uL (4.8-10.8)
[2020-11-14] MEDS ORDERED: MoRPHine SULFATE PF 1 MG/ML 10 ML AMP/VIAL ONE (07:14)
[2020-11-14] MEDS ORDERED: NALOXONE HCL 0.08 MG in SYRINGE 1.8 ML IV PRN (07:39)
[2020-11-14] MEDS ORDERED: MoRPHine SULFATE PF 1 MG/ML 10 ML AMP/VIAL INT SPINAL ONE (07:39)
[2020-11-14] MEDS ORDERED: KETOROLAC 30 MG/ML VIAL IV PRN (07:39)
[2020-11-14] MEDS ORDERED: ePHEDrine sulfate 50 MG/ML AMP IV PRN (07:39)
[2020-11-14] MEDS ORDERED: ONDANSETRON INJ 2 MG/ML 2 ML VIAL IV PRN (07:39)
[2020-11-14] MEDS ORDERED: NALOXONE HCL 1 MG in SODIUM CHLORIDE 0.9% 1000ML 1,000 ML IV PRN (07:39)
[2020-11-14] MEDS ORDERED: PROMETHAZINE HCL 12.5 MG in SODIUM CHLORIDE 0.9% 50 ML IV PRN (07:39)
[2020-11-14] MEDS ORDERED: diphenhydrAMINE 50 MG/ML VIAL IV PRN (07:39)
[2020-11-14] MEDS ORDERED: MEPERIDINE HCL 25 MG/ML CARP/VIAL IV PRN (07:39)
[2020-11-14] MEDS ORDERED: NALBUPHINE HCL INJ 10 MG/ML AMP IV PRN (07:39)
[2020-11-14] MEDS ORDERED: LACTATED RINGER'S 500 ML IV PRN (07:39)
[2020-11-14] MEDS ORDERED: NALOXONE HCL 0.4 MG/1 ML VIAL/CARP IV PRN (07:39)
--- NOTE | 2020-11-14 07:43 | History & Physical Bridge Note ---
Date of Service November 14, 2020 History & Physical Bridge Note I have examined the patient, reviewed the History & Physical and in the interval since the performance of the History & Physical I have noted the following changes of clinical significance: no changes noted
[2020-11-14] MEDS ORDERED: NO NARCOTICS OR SEDATIVES SCH (07:45)
[2020-11-14] MEDS ORDERED: SODIUM CHLORIDE 0.9% 1000ML 1,000 ML IV SCH (07:45)
[2020-11-14] MEDS ORDERED: LIDOCAINE 2% MPF LOCAL 5 ML VIAL INFIL ONE (08:10)
[2020-11-14] MEDS ORDERED: METOCLOPRAMIDE HCL INJ 5 MG/ML 2 ML VIAL ONE (08:10)
[2020-11-14] MEDS ORDERED: PROPOFOL IV EMULSION 10 MG/ML 20 ML VIAL IV ONE (08:10)
[2020-11-14] MEDS ORDERED: ONDANSETRON INJ 2 MG/ML 2 ML VIAL ONE (08:10)
[2020-11-14] MEDS ORDERED: OXYTOCIN 10 UNITS/ML VIAL ONE ×3 (08:10→08:51)
[2020-11-14] MEDS ORDERED: ePHEDrine sulfate 50 MG/ML SYR ONE (08:10)
[2020-11-14] MEDS ORDERED: PHENYLEPHRINE 100MCG/ML 5ML SYR ONE (08:10)
[2020-11-14] MEDS ORDERED: miSOPROStoL 200 MCG TAB ONE (09:16)
[2020-11-14 09:42] LABS: Hematocrit (blood only) 35.9 % (37-47); Hemoglobin 12.7 g/dL (12.0-16.0)
--- NOTE | 2020-11-14 09:46 | Post Operative Brief Note ---
Immediate Post Op Note v1 Date of Surgery November 14, 2020 Pre & Post Diagnosis Operation Date: 11/14/20 07:30 Pre-Op Diagnosis: Term Prior caesarean section, desires repeat Post-Op Diagnosis: Same as pre-op I identified the patient and participated in the time-out.: Yes Procedure Operation Date: 11/14/20 07:30 Actual Procedures p Repeat Section; Live male child at 0821 (Main OR #3)(Bilateral) - Zeus Ruby MD Surgeon Zeus Ruby MD Water Pipe Installer dr Pino Estimated Blood Loss 800 Findings Consistent with Post-Op Diagnosis Drains Zhao Catheter (Inserted after spinal anesthesia, patent and draining clear yellow urine throughout entire procedure.)
[2020-11-14] MEDS ORDERED: SENNA 8.6 MG TAB PO PRN (09:47)
[2020-11-14] MEDS ORDERED: BENZOCAINE 20% AER SPR 82.5 GM CAN EXT PRN (09:47)
[2020-11-14] MEDS ORDERED: SUPERCREAM 0.870% 15 GM JAR EXT PRN (09:47)
[2020-11-14] MEDS ORDERED: HYDROCORTISONE ACETATE 25 MG SUPP PR PRN (09:47)
[2020-11-14] MEDS ORDERED: MAGNESIUM HYDROXIDE SUSP 30 ML UDC PO PRN (09:47)
[2020-11-14] MEDS ORDERED: DIPHTHERIA/TETANUS/PERTUSSIS 0.5 ML SYR/VIAL IM ONE (09:47)
[2020-11-14] MEDS ORDERED: OXYTOCIN 20 UNITS in LACTATED RINGER'S 1,000 ML IV SCH (10:00)
[2020-11-14] MEDS ORDERED: OXYTOCIN 10 UNITS/ML VIAL IM ONE (10:41)
[2020-11-14] MEDS: LACTATED RINGER'S 1,000 ML IV SCH ×2 (10:56→18:50)
--- NOTE | 2020-11-14 11:30 | Operative Report (OR) ---
DATE OF PROCEDURE: 11/14/2020 INDICATION FOR SURGERY: This is a 30-year-old , at term, prior section, wish es to have repeat . PREOPERATIVE DIAGNOSES: 1. at term. 2. Previous section, wishes to have repeat section. SURGEON: Zeus Ruby MD. CLAY DRY PRESS HELPER: Tobi Pino MD. PROCEDURE: Repeat section. FINDINGS: Uterus appeared grossly normal. Tubes and adnexa appeared grossly normal as well. No sign ificant adhesions from prior surgery. INTRAOPERATIVE COMPLICATIONS: Right broad ligament hematoma, which was identified and bleeding stabil ized. DRAINS: Zhao catheter. ANESTHESIA: Spinal, Dr. Sandoval is attending. ESTIMATED BLOOD LOSS: 800 mL. URINE OUTPUT: 150 mL. INTRAVENOUS FLUIDS: 3100 mL. SPECIMEN: Placenta. DESCRIPTION OF PROCEDURE: The patient was taken to the operating room where she was prepped and drap ed in normal sterile fashion. Timeout was called. A Pfannenstiel incision was made and carried down to the fascia using the scalpel through the old incision. Fascia was incised in the midline and ext ended laterally on both sides. Fascia was sharply dissected over the rectus abdominis muscle superio rly and inferiorly. Peritoneum was identified and entered sharply. An Gary retractor was placed f or retraction. The vesicouterine peritoneum was sharply dissected off the lower segment of the uteru s. A low transverse incision was made with a scalpel. was delivered. Weight and Apgars and findings of the are in the pediatric record. Cord was clamped and cut and handed over to the waiting pediatric team. Placenta was manually removed. Uterus was exteriorized and cleared of all clots and debris. Uterus was closed in 2 layers with 0 Vi cryl. There was good hemostasis post-closure. At this point, inspection of the uterus showed a righ t broad ligament hematoma. Hematoma was opened and stress sutures were used to stabilize the hematom a site for hemostasis. Copious amount of irrigation was used to irrigate the abdomen. Uterus was re turned to the abdominal cavity. Hematoma at this time is identified by surgeon's maintenance assistant as stable . Peritoneum was closed in a running fashion with plain suture. Loose [id number] was used to c lose the rectus abdominis muscle. Fascia was closed in a running fashion using Vicryl stitch. Subcu taneous space was irrigated and closed with plain suture, skin was closed with earl and abdomen wa s dressed with the SHANTELLE dressing. All instruments were removed from the abdomen and the vagina and accounted for x2 including sponges, needles, and retractors. The patient is sent to recovery in stable condition. Job ID: [id number]
[2020-11-14] MEDS: SIMETHICONE 80 MG CHEW PO SCH ×3 (13:25→21:31)
[2020-11-14 14:21] LABS: Hematocrit (blood only) 34.6 % (37-47); Hemoglobin 12.2 g/dL (12.0-16.0)
--- NOTE | 2020-11-14 15:02 | Anesthesiology Progress Note ---
Date of Service November 14, 2020 Anesthesia Post Procedure Vital Signs Vital Signs: Temp Pulse Pulse Resp BP BP Pulse Ox 11/14/20 14:00 18 99 11/14/20 13:00 18 100 11/14/20 12:30 18 100 11/14/20 11:30 36.3 C L 83 18 117/80 100 11/14/20 11:23 99 H 100 11/14/20 11:20 99 H 100 11/14/20 11:18 94 H 100 11/14/20 11:13 95 H 100 11/14/20 11:08 101 H 125/58 L 100 11/14/20 11:03 90 100 11/14/20 10:58 86 100 11/14/20 10:53 88 99 11/14/20 10:50 98 H 18 156/79 H 100 11/14/20 10:48 95 H 156/79 H 99 11/14/20 10:43 85 100 11/14/20 10:38 91 H 100 11/14/20 10:33 94 H 99 11/14/20 10:28 98 H 99 11/14/20 10:23 103 H 99 11/14/20 10:22 109 H 120/56 L 11/14/20 10:21 93 H 18 120/56 L 120/56 L 99 11/14/20 10:20 109 H 18 120/56 L 97 11/14/20 10:18 101 H 97 11/14/20 10:13 96 H 99 11/14/20 10:12 90 129/58 L 11/14/20 10:10 90 18 129/58 L 11/14/20 10:08 106 H 98 11/14/20 10:03 101 H 98 11/14/20 10:01 102 H 108/50 L 11/14/20 10:00 102 H 18 108/50 L 97 11/14/20 09:58 103 H 97 11/14/20 09:53 108 H 96 11/14/20 09:52 107 H 94/42 L 11/14/20 09:50 108 H 18 99 11/14/20 09:49 105 H 127/58 L 11/14/20 09:48 107 H 94 11/14/20 09:40 96 H 18 94/42 L 99 11/14/20 09:35 101 H 100 11/14/20 09:30 105 H 18 127/58 L 94 11/14/20 09:20 36.5 C 86 18 146/65 H 99 11/14/20 07:01 82 115/79 11/14/20 06:20 36.8 C 96 H 18 126/76 Transfer of Care Handoff Completed per policy Notes Mental Status: alert / awake / arousable Patient Amnestic to Procedure: Yes Nausea / Vomiting: adequately controlled Pain: adequately controlled Airway Patency, RR, SpO2: stable & adequate BP & HR: stable & adequate Hydration State: stable & adequate Neuraxial Anesthesia: was administered and sensory block is resolving Anesthetic Complications: no major complications apparent
[2020-11-14] MEDS: DOCUSATE SODIUM 100 MG CAP PO SCH (21:31)
[2020-11-15] MEDS ORDERED: DC INTRASPINAL MORPHINE SCH (02:04)
[2020-11-15] MEDS ORDERED: ONDANSETRON INJ 2 MG/ML 2 ML VIAL IV PRN (02:04)
[2020-11-15] MEDS ORDERED: diphenhydrAMINE 50 MG/ML VIAL IV PRN (02:04)
[2020-11-15] MEDS ORDERED: PROMETHAZINE HCL 25 MG in SODIUM CHLORIDE 0.9% 50 ML IV PRN (02:04)
[2020-11-15] MEDS ORDERED: diphenhydrAMINE Capsule 25 MG CAP PO PRN (02:04)
[2020-11-15] MEDS ORDERED: oxyCODONE/ACETAMINOPHEN 5mg/325mg TAB PO PRN (02:04)
[2020-11-15] MEDS: IBUPROFEN 600 MG TAB PO PRN ×5 (05:08→23:17)
[2020-11-15 07:05] LABS: Basophils # (auto) 0.01 K/uL (0-0.2); Basophils % (auto) 0.1 %; Eosinophils # (auto) 0.06 K/uL (0-0.5); Eosinophils % (auto) 0.5 %; Hematocrit (blood only) 33.6 % (37-47); Hemoglobin 11.8 g/dL (12.0-16.0); Immature Granulocytes # (auto) 0.02 K/uL (0.00-0.02); Immature Granulocytes % (auto) 0.2 %; Lymphocytes # (auto) 1.03 K/uL (1.2-3.4); Lymphocytes % (auto) 8.4 %; Mean Corpuscular Hgb Conc 35.1 g/dL (32-36); Mean Corpuscular Volume 96.8 fL (80-100); Monocytes # (auto) 0.95 K/uL (0.11-0.59); Monocytes % (auto) 7.7 %; Neutrophils # (auto) 10.25 K/uL (1.4-6.5); Neutrophils % (auto) 83.1 %; Platelet Count 133 K/uL (130-400); RDW Coefficient of Variation 13.4 % (11.5-14.5); RDW Standard Deviation 46.8 fL (36.4-46.3); Red Blood Count 3.47 M/uL (4.2-5.4); White Blood Count 12.32 K/uL (4.8-10.8)
--- NOTE | 2020-11-15 07:39 | Obstetrical Progress Note ---
Date of Service November 15, 2020 Assessment & Plan Admission and Anticipated Discharge Date Admission Date: November 14, 2020 Subjective Patient is seen and examined. She feels well, no complaints. Pain is under control with oral meds. Not OOB yet Zhao catheter was removed this morning and has not Voided yet Tolerating clear diet with out N&V Flatus + BM neg Bleeding is minimal No fever/ chills/ CP/ SOB/ N&V/ Leg pain Breast feeding without problems Vital Signs Temp Pulse Pulse Resp BP BP BP 11/15/20 07:36 36.5 C 83 20 97/65 L 11/15/20 03:45 36.8 C 93 H 18 109/75 11/15/20 02:00 18 11/15/20 01:00 20 11/15/20 00:00 18 11/14/20 23:10 36.7 C 88 18 104/71 11/14/20 21:00 18 11/14/20 20:30 36.9 C 89 18 108/75 11/14/20 20:00 18 11/14/20 19:00 18 11/14/20 17:00 19 11/14/20 16:00 22 11/14/20 15:30 36.9 C 64 21 108/71 11/14/20 15:00 21 11/14/20 14:00 18 11/14/20 13:00 18 11/14/20 12:30 18 11/14/20 11:30 36.3 C L 83 18 117/80 11/14/20 11:23 99 H 11/14/20 11:20 99 H 11/14/20 11:18 94 H 11/14/20 11:13 95 H 11/14/20 11:08 101 H 125/58 L 11/14/20 11:03 90 11/14/20 10:58 86 11/14/20 10:53 88 11/14/20 10:50 98 H 18 156/79 H 11/14/20 10:48 95 H 156/79 H 11/14/20 10:43 85 11/14/20 10:38 91 H 11/14/20 10:33 94 H 11/14/20 10:28 98 H 11/14/20 10:23 103 H 11/14/20 10:22 109 H 120/56 L 11/14/20 10:21 93 H 18 120/56 L 120/56 L 11/14/20 10:20 109 H 18 120/56 L 11/14/20 10:18 101 H 11/14/20 10:13 96 H 11/14/20 10:12 90 129/58 L 11/14/20 10:10 90 18 129/58 L 11/14/20 10:08 106 H 11/14/20 10:03 101 H 11/14/20 10:01 102 H 108/50 L 11/14/20 10:00 102 H 18 108/50 L 11/14/20 09:58 103 H 11/14/20 09:53 108 H 11/14/20 09:52 107 H 94/42 L 11/14/20 09:50 108 H 18 11/14/20 09:49 105 H 127/58 L 11/14/20 09:48 107 H 11/14/20 09:40 96 H 18 94/42 L 11/14/20 09:35 101 H 11/14/20 09:30 105 H 18 127/58 L 11/14/20 09:20 36.5 C 86 18 146/65 H Pulse Ox 11/15/20 07:36 96 11/15/20 03:45 99 11/15/20 02:00 99 11/15/20 01:00 97 11/15/20 00:00 99 11/14/20 23:10 97 11/14/20 21:00 99 11/14/20 20:30 100 11/14/20 20:00 100 11/14/20 19:00 100 11/14/20 17:00 99 11/14/20 16:00 99 11/14/20 15:30 11/14/20 15:00 100 11/14/20 14:00 99 11/14/20 13:00 100 11/14/20 12:30 100 11/14/20 11:30 100 11/14/20 11:23 100 11/14/20 11:20 100 11/14/20 11:18 100 11/14/20 11:13 100 11/14/20 11:08 100 11/14/20 11:03 100 11/14/20 10:58 100 11/14/20 10:53 99 11/14/20 10:50 100 11/14/20 10:48 99 11/14/20 10:43 100 11/14/20 10:38 100 11/14/20 10:33 99 11/14/20 10:28 99 11/14/20 10:23 99 11/14/20 10:22 11/14/20 10:21 99 11/14/20 10:20 97 11/14/20 10:18 97 11/14/20 10:13 99 11/14/20 10:12 11/14/20 10:10 11/14/20 10:08 98 11/14/20 10:03 98 11/14/20 10:01 11/14/20 10:00 97 11/14/20 09:58 97 11/14/20 09:53 96 11/14/20 09:52 11/14/20 09:50 99 11/14/20 09:49 11/14/20 09:48 94 11/14/20 09:40 99 11/14/20 09:35 100 11/14/20 09:30 94 11/14/20 09:20 99 Intake and Output 11/14/20 11/15/20 11/15/20 22:59 06:59 14:59 Intake Total 987.5 / 2487.5 Output Total 1999 255 / 4900 Balance -1012.5 / -2412.5 -2550 / -2412.5 Intake: IV 987.5 / 1987.5 Oxytocin 20 units In Lactated 987.5 / 987.5 Ringer's 1,000 ml @ 0 mls/hr IV .Q0M [facility] Rx#:[id number] Output: Urine Amount (Catheter) 1999 2550 / 4900 Zhao/Indwelling 1999 2550 / 4900 Lab Results 11/14/20 11/14/20 11/14/20 Range/Units 06:04 06:04 06:11 WBC 11.52 H (4.8-10.8) K/uL RBC 4.22 (4.2-5.4) M/uL Hgb 14.2 (12.0-16.0) g/dL Hct 39.5 (37-47) % MCV 93.6 (80-100) fL MCH 33.6 (25-34) pg MCHC 35.9 (32-36) g/dL RDW Std Deviation 45.2 (36.4-46.3) fL RDW Coeff of Kelly 13.3 (11.5-14.5) % Plt Count 165 (130-400) K/uL MPV 9.9 (7.4-10.4) fL Immature Gran % (Auto) 0.4 % Neut % (Auto) 76.2 % Lymph % (Auto) 15.9 % [place] % (Auto) 7.0 % Eos % (Auto) 0.4 % Baso % (Auto) 0.1 % Neut # (Auto) 8.77 H (1.4-6.5) K/uL Lymph # (Auto) 1.83 (1.2-3.4) K/uL [place] # (Auto) 0.81 H (0.11-0.59) K/uL Eos # (Auto) 0.05 (0-0.5) K/uL Baso # (Auto) 0.01 (0-0.2) K/uL Immature Gran # (Auto) 0.05 H (0.00-0.02) K/uL COVID-19 Eval Order Covid19 IDNow atMMTC SARS-CoV-2, RNA, NAAT (NEGATIVE) Blood Type O Negative Antibody Screen NEGATIVE 11/14/20 11/14/20 11/14/20 Range/Units 06:11 09:31 14:12 WBC (4.8-10.8) K/uL RBC (4.2-5.4) M/uL Hgb 12.7 12.2 (12.0-16.0) g/dL Hct 35.9 L 34.6 L (37-47) % MCV (80-100) fL MCH (25-34) pg MCHC (32-36) g/dL RDW Std Deviation (36.4-46.3) fL RDW Coeff of Kelly (11.5-14.5) % Plt Count (130-400) K/uL MPV (7.4-10.4) fL Immature Gran % (Auto) % Neut % (Auto) % Lymph % (Auto) % [place] % (Auto) % Eos % (Auto) % Baso % (Auto) % Neut # (Auto) (1.4-6.5) K/uL Lymph # (Auto) (1.2-3.4) K/uL [place] # (Auto) (0.11-0.59) K/uL Eos # (Auto) (0-0.5) K/uL Baso # (Auto) (0-0.2) K/uL Immature Gran # (Auto) (0.00-0.02) K/uL COVID-19 Eval Order SARS-CoV-2, RNA, NAAT NEGATIVE (NEGATIVE) Blood Type Antibody Screen 11/15/20 Range/Units 06:32 WBC 12.32 H (4.8-10.8) K/uL RBC 3.47 L (4.2-5.4) M/uL Hgb 11.8 L (12.0-16.0) g/dL Hct 33.6 L (37-47) % MCV 96.8 (80-100) fL MCH 34.0 (25-34) pg MCHC 35.1 (32-36) g/dL RDW Std Deviation 46.8 H (36.4-46.3) fL RDW Coeff of Kelly 13.4 (11.5-14.5) % Plt Count 133 (130-400) K/uL MPV 10.0 (7.4-10.4) fL Immature Gran % (Auto) 0.2 % Neut % (Auto) 83.1 % Lymph % (Auto) 8.4 % [place] % (Auto) 7.7 % Eos % (Auto) 0.5 % Baso % (Auto) 0.1 % Neut # (Auto) 10.25 H (1.4-6.5) K/uL Lymph # (Auto) 1.03 L (1.2-3.4) K/uL [place] # (Auto) 0.95 H (0.11-0.59) K/uL Eos # (Auto) 0.06 (0-0.5) K/uL Baso # (Auto) 0.01 (0-0.2) K/uL Immature Gran # (Auto) 0.02 (0.00-0.02) K/uL COVID-19 Eval Order SARS-CoV-2, RNA, NAAT (NEGATIVE) Blood Type Antibody Screen PE: General: Alert, orientedx3, NAD CVS: S1S2 RRR Lungs; CTAB Abd: soft, NT, ND, BS+, fundus firm, below Umbilicus Incision/ Dressing: Clean, dry, intact Perineum intact, Lochia rubra minimal Ext; NT, no edema AP: 30 yo s/p C Section, pod# 1 VSS Afebrile doing well H&H stable Continue routine postop care Encourage ambulation, PO intake All questions were answered Results & Data ([facility]) Vital Signs (Past 12 Hours) Vital Signs Temp Pulse Resp BP Pulse Ox 11/15/20 07:36 36.5 C 83 20 97/65 L 96 11/15/20 03:45 36.8 C 93 H 18 109/75 99 11/15/20 02:00 18 99 11/15/20 01:00 20 97 11/15/20 00:00 18 99 11/14/20 23:10 36.7 C 88 18 104/71 97 11/14/20 21:00 18 99 11/14/20 20:30 36.9 C 89 18 108/75 100 11/14/20 20:00 18 100
[2020-11-15] MEDS: DOCUSATE SODIUM 100 MG CAP PO SCH ×2 (07:44→19:38)
[2020-11-15] MEDS: FERROUS SULFATE 325 MG TAB PO SCH (07:44)
[2020-11-15] MEDS: SIMETHICONE 80 MG CHEW PO SCH ×4 (07:44→19:38)
[2020-11-15] MEDS: PRENATAL VITAMIN 1 TAB PO SCH (07:44)
[2020-11-15] MEDS ORDERED: bisacodyL 5 MG TABEC PO SCH (20:00)
[2020-11-16] MEDS: IBUPROFEN 600 MG TAB PO PRN ×2 (03:09→08:21)
[2020-11-16] MEDS: DOCUSATE SODIUM 100 MG CAP PO SCH (08:22)
[2020-11-16] MEDS: SIMETHICONE 80 MG CHEW PO SCH (08:22)
[2020-11-16] MEDS: PRENATAL VITAMIN 1 TAB PO SCH (08:22)
[2020-11-16] MEDS: FERROUS SULFATE 325 MG TAB PO SCH (08:22)
[2020-11-16] MEDS ORDERED: bisacodyL 10 MG SUPP PR PRN (09:47)
--- NOTE | 2020-11-16 10:30 | Obstetrical Progress Note ---
Date of Service November 16, 2020 Physical Exam Constitutional WD/WN, vitals as above comfortable Gastrointestinal (Abdomen) abdomen soft and non-tender incision c/d/i no edema neg Deirdre's Results & Data ([facility]) Vital Signs (Past 12 Hours) Vital Signs Temp Pulse Resp BP 11/15/20 23:30 36.5 C 75 18 114/74 Laboratory Results Laboratory Results - last 72 hr 11/14/20 11/14/20 11/14/20 06:04 06:04 06:11 WBC 11.52 H RBC 4.22 Hgb 14.2 Hct 39.5 MCV 93.6 MCH 33.6 MCHC 35.9 RDW Std Deviation 45.2 RDW Coeff of Kelly 13.3 Plt Count 165 MPV 9.9 Immature Gran % (Auto) 0.4 Neut % (Auto) 76.2 Lymph % (Auto) 15.9 [place] % (Auto) 7.0 Eos % (Auto) 0.4 Baso % (Auto) 0.1 Neut # (Auto) 8.77 H Lymph # (Auto) 1.83 [place] # (Auto) 0.81 H Eos # (Auto) 0.05 Baso # (Auto) 0.01 Immature Gran # (Auto) 0.05 H COVID-19 Eval Order Covid19 IDNow atMDEC SARS-CoV-2, RNA, NAAT Blood Type O Negative Antibody Screen NEGATIVE Screen 11/14/20 11/14/20 11/14/20 06:11 09:31 14:12 WBC RBC Hgb 12.7 12.2 Hct 35.9 L 34.6 L MCV MCH MCHC RDW Std Deviation RDW Coeff of Kelly Plt Count MPV Immature Gran % (Auto) Neut % (Auto) Lymph % (Auto) [place] % (Auto) Eos % (Auto) Baso % (Auto) Neut # (Auto) Lymph # (Auto) [place] # (Auto) Eos # (Auto) Baso # (Auto) Immature Gran # (Auto) COVID-19 Eval Order SARS-CoV-2, RNA, NAAT NEGATIVE Blood Type Antibody Screen Screen 11/15/20 11/15/20 06:32 08:39 WBC 12.32 H RBC 3.47 L Hgb 11.8 L Hct 33.6 L MCV 96.8 MCH 34.0 MCHC 35.1 RDW Std Deviation 46.8 H RDW Coeff of Kelly 13.4 Plt Count 133 MPV 10.0 Immature Gran % (Auto) 0.2 Neut % (Auto) 83.1 Lymph % (Auto) 8.4 [place] % (Auto) 7.7 Eos % (Auto) 0.5 Baso % (Auto) 0.1 Neut # (Auto) 10.25 H Lymph # (Auto) 1.03 L [place] # (Auto) 0.95 H Eos # (Auto) 0.06 Baso # (Auto) 0.01 Immature Gran # (Auto) 0.02 COVID-19 Eval Order SARS-CoV-2, RNA, NAAT Blood Type O Negative Antibody Screen Cancelled Screen Negative
--- NOTE | 2020-11-28 11:07 | Discharge Summary (DS) ---
DATE OF ADMISSION: 11/14/2020 DATE OF DISCHARGE: 11/16/2020 CHIEF COMPLAINT: This is a 30-year-old G2, P1 who presented to labor and delivery on 11/14/2020 for repeat section. The patient underwent surgery and delivered a live . Weight and Apga rs in the pediatric record. Surgical procedure is in the surgery note as well. Surgery otherwise wa s unremarkable. The patient did well and met all milestones in recovery. She was able to advance he r diet and ambulation ____ medications and was discharged home safely on 11/16/2020. PAST MEDICAL HISTORY: History of a fracture of the phalanx. PAST SURGICAL HISTORY: History of compartment syndrome, previous section and dental procedu res. FAMILY HISTORY: Noncontributory. SOCIAL HISTORY: The patient is and lives with spouse and child. Denies tobacco, drug or alc ohol use. ALLERGIES: No known drug allergies. REVIEW OF SYSTEMS: Negative except as dictated in the HPI. PHYSICAL EXAMINATION: VITAL SIGNS: On 11/16/2020 showed a blood pressure of 122/86, pulse of 81, respiration of 20, temper ature 36.5. HEART: S1 and S2, regular rhythm and rate. LUNGS: Clear to auscultation bilaterally. ABDOMEN: Nontender, nondistended, positive bowel sounds. Incision clean, dry and intact. EXTREMITIES: No cyanosis, clubbing or edema. LABORATORY DATA: On 11/15/2020 showed hemoglobin of 11.8, hematocrit of 33. CONDITION ON DISCHARGE: Stable. OPERATIONS: Repeat section. DISCHARGE DIAGNOSIS: Postop after section. PLAN ON DISCHARGE: The patient is discharged home with instructions regarding activity, diet, and [facility] appointment. Job ID: [id number]
== END 2020-11-16 12:40 | disposition home or self-care (01) | DRG 787 ==
LOC: 4S1 05:39 → EDSTATUS 07:30 → 4S2 13:45

== ENCOUNTER 2022-11-05 08:51 | Inpatient (IN) ==
--- NOTE | 2022-10-18 09:20 | Anesthesiology Consultation ---
Date of Service October 18, 2022 Assessment & Plan (1) Encounter for pre-operative examination: Chart Review Chart Review: manager physical initiated -COVID screening: Per PAT nursing assessment on 10/18/22. No known COVID-19 pos itive contacts or current COVID-19 related symptoms. Travel screen negative. At surgeon discretion if preop Covid testing being done. Repeat 11/14/20= Done under SAB at L3-4 with 1 attempt History Surgery Operation Date: 11/05/22 09:30 Proposed Procedures p Section in LD - Verenice Sahu MD, PhD Height/Weight Height: 5 ft 5 in Weight: 99.79 kg Allergies Allergy/AdvReac Type Severity Reaction Status Date / Time No Known Allergies Allergy Verified 10/18/22 08:58 Medications Home Medications Medication Instructions Recorded Confirmed Last Taken cetirizine 10 mg tablet 10 mg PO DAILY 02/18/19 10/18/22 02/17/19 21:30 fluticasone propionate 50 2 spray intranasal DAILY PRN 02/18/19 10/18/22 02/16/19 21:30 mcg/actuation nasal Congestion spray,suspension (Flonase Allergy Relief) vits no.124-ferrous fum 1 tab PO HS 02/18/19 10/18/22 02/17/19 21:30 27 mg iron-folic acid 800 mcg tablet ( Vitamin) cholecalciferol (vitamin D3) 25 25 mcg PO DAILY 10/18/22 10/18/22 Unknown mcg (1,000 unit) tablet (Vitamin D3) Past Medical History Medical History History of COVID-19 04/2022>resolved Past Family History Family History Father Hypertension Other No family history of adverse response to anesthesia Past Surgical History Surgical History Compartment syndrome of right lower extremity (~11/01/10) lower right leg surgery Hx of section x2 [place] teeth extracted Social History Smoking Status: Never smoker Do You Dip or Chew Tobacco: No Hx Alcohol Use: No Hx Substance Use: No substance use type: does not use
[~2022-11-05 08:51] MED LIST: CITRIC ACID/SODIUM CITRATE 15 ML UDC PO SCH; LACTATED RINGER'S 1,000 ML IV SCH; ceFAZolin 2,000 MG in SYRINGE 0 ML IV SCH
[2022-11-05] MEDS ORDERED: LACTATED RINGER'S 1,000 ML IV PRN (09:11)
[2022-11-05] MEDS ORDERED: OXYTOCIN 30 UNITS/500 ML BAG IV PRN (09:11)
[2022-11-05] MEDS ORDERED: LIDOCAINE 1% LOCAL 20 ML VIAL INFIL PRN (09:11)
--- NOTE | 2022-11-05 09:31 | History & Physical Bridge Note ---
Date of Service November 05, 2022 History & Physical Bridge Note I have examined the patient, reviewed the History & Physical and in the interval since the performance of the History & Physical I have noted the following changes of clinical significance: no changes noted
--- NOTE | 2022-11-05 09:31 | Discharge Summary ---
Date of Service November 05, 2022 Admission HPI Per Admitting Provider Patient is a 32-year-old -0-0-2 admitted at 39 weeks and 4 days for elective repeat . She is a previous x2. Only other complications this was COVID-19 infection at 11 weeks, and Rh-. Discharge Data Consultations 11/05/22 09:11 Consult Anesthesiology Stat Procedures Performed Operation Date: 11/05/22 10:45 <No data on this case meets the specified criteria> Hospital Course (1) Previous delivery affecting : POD #2 pt doing well No complaints D/c home with instructions
[2022-11-05 09:51] LABS: Basophils # (auto) 0.02 K/uL (0.00-0.20); Basophils % (auto) 0.2 %; Eosinophils # (auto) 0.04 K/uL (0.00-0.50); Eosinophils % (auto) 0.4 %; Hematocrit (blood only) 39.3 % (37.0-47.0); Hemoglobin 14.4 g/dl (12.0-16.0); Immature Granulocytes # (auto) 0.05 K/uL (0.01-0.20); Immature Granulocytes % (auto) 0.5 %; Lymphocytes # (auto) 1.41 K/uL (1.20-3.40); Lymphocytes % (auto) 14.1 %; Mean Corpuscular Hemoglobin 33.9 pg (25.0-34.0); Mean Corpuscular Hgb Conc 36.6 g/dL (32.0-36.0); Mean Corpuscular Volume 92.5 fL (80.0-100.0); Mean Platelet Volume 10.1 fL (9.4-12.4); Monocytes # (auto) 0.71 K/uL (0.11-0.59); Monocytes % (auto) 7.1 %; Neutrophils # (auto) 7.74 K/uL (1.40-6.50); Neutrophils % (auto) 77.7 %; Platelet Count 148 K/uL (130-400); RDW Coefficient of Variation 13.1 % (11.5-14.5); RDW Standard Deviation 43.8 fL (36.4-46.3); Red Blood Count 4.25 M/uL (4.20-5.40); White Blood Count 9.97 K/ul (4.8-10.8)
[2022-11-05] MEDS ORDERED: SODIUM CHLORIDE 0.9% 250 ML IV PRN (10:19)
[2022-11-05] MEDS ORDERED: NALOXONE HCL 1 MG in SODIUM CHLORIDE 0.9% 1000ML 1,000 ML IV PRN (12:03)
[2022-11-05] MEDS ORDERED: diphenhydrAMINE 50 MG/ML VIAL IV PRN (12:03)
[2022-11-05] MEDS ORDERED: HYDROmorphone INJ 0.5 MG/0.5 ML SYR IV PRN (12:03)
[2022-11-05] MEDS ORDERED: MoRPHine SULFATE PF 1 MG/ML 10 ML AMP/VIAL INT SPINAL ONE (12:03)
[2022-11-05] MEDS ORDERED: ONDANSETRON INJ 2 MG/ML 2 ML VIAL IV PRN ×2 (12:03→13:59)
[2022-11-05] MEDS ORDERED: NALOXONE HCL 0.08 MG in SYRINGE 1.8 ML IV PRN (12:03)
[2022-11-05] MEDS ORDERED: MEPERIDINE HCL 25 MG/ML CARP/VIAL IV PRN (12:03)
[2022-11-05] MEDS ORDERED: LACTATED RINGER'S 500 ML IV PRN (12:03)
[2022-11-05] MEDS ORDERED: PROMETHAZINE HCL 12.5 MG in SODIUM CHLORIDE 0.9% 50 ML IV PRN (12:03)
[2022-11-05] MEDS ORDERED: ePHEDrine sulfate 50 MG/ML AMP IV PRN (12:03)
[2022-11-05] MEDS ORDERED: NALOXONE HCL 0.4 MG/1 ML VIAL/CARP IV PRN (12:03)
[2022-11-05] MEDS ORDERED: NALBUPHINE HCL INJ 10 MG/ML AMP IV PRN (12:03)
[2022-11-05] MEDS ORDERED: NO NARCOTICS OR SEDATIVES SCH (12:15)
[2022-11-05] MEDS ORDERED: DC INTRASPINAL MORPHINE SCH (12:15)
[2022-11-05] MEDS ORDERED: SODIUM CHLORIDE 0.9% 1000ML 1,000 ML IV SCH (12:15)
[2022-11-05] MEDS ORDERED: ONDANSETRON INJ 2 MG/ML 2 ML VIAL ONE (12:51)
[2022-11-05] MEDS ORDERED: KETOROLAC 30 MG/ML VIAL ONE (12:51)
[2022-11-05] MEDS ORDERED: MoRPHine SULFATE PF 1 MG/ML 10 ML AMP/VIAL ONE (12:52)
[2022-11-05] MEDS ORDERED: fentaNYL citrate PF 100 MCG/2 ML VIAL ONE (12:52)
[2022-11-05] MEDS ORDERED: PHENYLEPHRINE HCL 10 MG/ML VIAL ONE (13:18)
[2022-11-05] MEDS ORDERED: OXYTOCIN 10 UNITS/ML VIAL ONE ×4 (13:18→13:31)
--- NOTE | 2022-11-05 13:53 | Operative Report ---
Post Operative Report Pre & Post Diagnosis Operation Date: 11/05/22 10:45 1. 32-year-old -0-0-2 at 39 weeks and 4 days 2.previous x2 3.desires repeat 4.Rh- 5.history of COVID-19 affecting in first trimester I identified the patient and participated in the time-out.: Yes Procedure Operation Date: 11/05/22 10:45 Actual Procedures Primary lower transverse delivery via Pfannenstiel incision Lysis of adhesions Surgeon Verenice Sahu MD, PhD [employer] Utility Worker Latrice Galvez PA-C Estimated Blood Loss 900 Findings Consistent with Post-Op Diagnosis Liveborn male delivered at 1321, nuchal x1 reduced after delivery, Apgars 8/9. Weight pending pH pending Normal-appearing uterus with omental adhesions attached to the posterior aspect of the uterus. Normal-appearing bilateral fallopian tubes and ovaries seen at time of surgery. Placenta normal, three-vessel cord Fluids See anesthesia record Specimens Placenta Drains Zhao catheter Complications None Disposition Accompanied Patient To Recovery: No Indications Previous x2, desires repeat Description of Procedure Procedure Summary: section was recommended. Risks, benefits and alternatives were discussed including but not limited to infection, bleeding that may require blood products or hysterectomy for life saving measures, injury to surrounding organs including but not limited to bowel, bladder, ureters, tubes and ovaries and/or the baby. Should injury occur it could require longer/additional surgery to repair. Patient was also counselled about risk of DVT/PE, and injury to infant during delivery. The patient stated understanding and desired to proceed. All questions were answered posed by patient. Prior to being taken to the OR, 2 grams of cefazolin IV was administered. The patient was taken to the operating room where regional anesthesia was found to be adequate. . She was then prepared and draped in the usual sterile fashion in the dorsal supine position with a leftward tilt displacing the uterus. Zhao was draining to gravity. SCDs were on bilateral lower extremities. A pfannenstiel skin incision was then made with the scalpel and carried through to the underlying layer of fascia. The fascia was incised in the midline and the incision extended laterally with the Canseco scissors. The superior aspect of the facial incision was then grasped with the Jewel clamps, elevated and the underlying rectus muscles dissected off bluntly. Attention was then turned to the inferior aspect of this incision which in a similar fashion was grasped, elevated with the Jewel clamps and the rectus muscle dissected off bluntly. The rectus muscles were in the midline. The peritoneum identified, grasped with the pick-ups and entered sharply with the Metzenbaum scissors. The peritoneal incision was then extended superiorly and inferiorly with good visualization of the bladder. The bladder blade was inserted and the vesicouterine peritoneum was identified, grasped with the pick-ups, and entered sharply with Metzenbaum scissors. This incision was then extended laterally and the bladder flap created digitally and the bladder blade was reinserted. The lower uterine segment was identified and incised in a transverse fashion with the scalpel. The uterine incision was then extended bluntly laterally. Artificial rupture of membranes demonstrated clear fluid. The bladder blade was removed. The fetus was in cephalic presentation. At this point there was difficulty with delivering the infant's head, Kiwi vacuum was called for. Kiwi vacuum was applied avoiding the fontanelles and sagittal suture, and avoiding maternal tissue. Pressure was applied to the green zone, and there was noted to be 2 pop offs. There was still difficulty with delivering infant's head, and at this point Maylard incision was done on both the left and right side to the patient's abdominal wall muscles, facilitating further space. The infant's head delivered atraumatically. The anterior shoulders were delivered followed by the posterior shoulders then the remainder of the body. The infant's mouth and nose were bulb suctioned. The umbilical cord was clamped times two and cut. The infant was handed off to the awaiting ped staff. A male iinfant was delivered weight pending with APGARS of 8 at 1 minute and 9 at 5 minutes. The infant was taken to the recovery room for transition. Cord blood gases were obtained. The placenta was removed with gentle traction. 30 units of oxytocin were added to IVF and allowed to run freely. The uterus was exteriorized and cleared of all clots and debris. The uterine incision was inspected and found to be without any extensions and was repaired with 0 Vicryl in a running, locked fashion. A second imbricating layer was performed. Upon inspection, the repaired hysterotomy was found to be hemostatic. The uterus was firm and returned to the abdomen. The gutters were cleared of all clots and debris. Dann powder was then applied on the hysterotomy. The muscle was reapproximated with 2-0 Vicryl in a mattress suture. The fascia was reapproximated with 0 Vicryl in a running fashion. The subcutaneous layer was closed with 2-0 Vicryl in a running fashion. The skin was closed in a subcuticular fashion with 4-0 vicryl. Yehuda dressing was then applied over the incision The patient tolerated the procedure well. Sponge, lap and needle counts were correct x4. The patient was taken to the recovery room in stable condition. Attestation: My Airport Utility Worker was necessary throughout the procedure(s) for tissue retraction. I understand that section 1842 (b)(7)(D) of the Social Security Act generally prohibits Medicare physician fee schedule payment for the services of [id number] in teaching hospitals when qualified residents are available to furnish such services. I certify that the services for which payment is claimed were medically necessary, and that no qualified resident was available to perform the services. I further understand that these services are subject to post-payment review by the Medicare carrier. I attest to the content of the Intraoperative Record and any orders documented therein. Any exceptions are noted below.
[2022-11-05] MEDS ORDERED: MAGNESIUM HYDROXIDE SUSP 30 ML UDC PO PRN (13:59)
[2022-11-05] MEDS ORDERED: SENNA 8.6 MG TAB PO PRN (13:59)
[2022-11-05] MEDS ORDERED: BENZOCAINE 20% SPRY 85 APPLN/85 GM CAN EXT PRN (13:59)
[2022-11-05] MEDS ORDERED: DIPHTHERIA/TETANUS/PERTUSSIS Vaccine (Tdap, Age 7+yrs) 0.5mL SYR/VL IM ONE (13:59)
[2022-11-05] MEDS ORDERED: HYDROCORTISONE ACETATE 25 MG SUPP PR PRN (13:59)
[2022-11-05] MEDS ORDERED: FLUTICASONE PROPIONATE NA SPR 16 GM BTL NAE PRN (14:00)
[2022-11-05] MEDS ORDERED: LACTATED RINGER'S 1,000 ML IV SCH (14:00)
[2022-11-05] MEDS ORDERED: RHOGAM IM ONE (14:05)
[2022-11-05 14:07] LABS: Base Excess Cord Venous Blood -2.2 mEq/L (-7.7-1.9); Cord Venous Blood HCO3 24 mmol/L (18.4-26.8); Cord Venous Blood PCO2 47 mmHg (30.4-57.2); Cord Venous Blood PO2 19 mmHg (14.1-43.3); Cord Venous Blood pH 7.32 (7.20-7.44); O2 Saturation Cord Venous Bld < 60.0 % (<68)
[2022-11-05 14:08] LABS: Base Excess Cord Arterial Bld -2.3 mEq/L (-9-1.8); CO2 Cord Arterial Blood 52 mmHg (39.1-73.5); HCO3 Cord Arterial Blood 25 mmol/L (19.7-28.5); Oxygen Sat Cord Arterial Blood < 60.0 % (<60); PO2 Cord Arterial Blood 8 mmHg (4.1-31.7); pH Cord Arterial Blood 7.29 (7.1-7.38)
[2022-11-05] MEDS ORDERED: ARISTA ABSORBABLE HEMOSTAT 3GM TOP ONE (14:23)
--- NOTE | 2022-11-05 15:36 | Anesthesiology Progress Note ---
Date of Service November 05, 2022 Anesthesia Post Procedure Vital Signs Vital Signs: Temp Pulse Resp BP Pulse Ox 11/05/22 14:56 18 11/05/22 14:46 16 11/05/22 14:36 16 11/05/22 14:26 16 11/05/22 14:16 18 11/05/22 14:06 16 11/05/22 13:55 36.6 C 18 11/05/22 10:07 36.8 C 20 11/05/22 15:34 85 97 11/05/22 15:29 73 96 11/05/22 15:24 76 96 11/05/22 15:25 85 121/69 11/05/22 15:19 77 97 11/05/22 15:15 200 H 115/52 L 11/05/22 15:14 87 97 11/05/22 15:09 76 96 11/05/22 15:05 68 122/72 11/05/22 15:04 75 96 11/05/22 15:02 80 93 11/05/22 14:59 73 96 11/05/22 14:56 71 94 11/05/22 14:54 81 96 11/05/22 14:55 67 113/66 11/05/22 14:49 68 96 11/05/22 14:44 97 11/05/22 14:44 71 11/05/22 14:45 68 121/66 11/05/22 14:44 79 92 11/05/22 14:39 71 94 11/05/22 14:35 73 120/75 11/05/22 14:34 78 95 11/05/22 14:29 68 96 11/05/22 14:24 80 97 11/05/22 14:25 86 118/74 11/05/22 14:19 97 11/05/22 14:19 94 H 11/05/22 14:19 84 94 11/05/22 14:16 77 114/66 11/05/22 14:13 84 100 11/05/22 14:08 67 99 11/05/22 14:06 76 101/53 L 11/05/22 14:03 78 98 11/05/22 13:58 72 99 11/05/22 13:55 71 109/65 11/05/22 13:53 75 98 11/05/22 12:00 16 11/05/22 12:00 16 11/05/22 11:30 20 11/05/22 11:30 20 11/05/22 09:05 93 H 136/81 Transfer of Care Handoff Completed per policy Notes Mental Status: alert / awake / arousable Patient Amnestic to Procedure: No Nausea / Vomiting: adequately controlled Pain: adequately controlled Airway Patency, RR, SpO2: stable & adequate BP & HR: stable & adequate Hydration State: stable & adequate Neuraxial Anesthesia: was administered and sensory block is resolving Anesthetic Complications: no major complications apparent and Pt Satisfied with anesthetic care
[2022-11-05] MEDS ORDERED: LACTATED RINGER'S 1,000 ML IV ONE (16:05)
[2022-11-05] MEDS: OXYTOCIN 20 UNITS in LACTATED RINGER'S 1,000 ML IV SCH (17:20)
[2022-11-05] MEDS: MoRPHine SULFATE 2 MG/ML CARP IV PRN (21:18)
[2022-11-05] MEDS: SIMETHICONE 80 MG CHEW PO SCH (21:18)
[2022-11-05] MEDS: DOCUSATE SODIUM 100 MG CAP PO SCH (21:18)
[2022-11-06] MEDS: OXYTOCIN 20 UNITS in LACTATED RINGER'S 1,000 ML IV SCH (01:20)
[2022-11-06] MEDS: MoRPHine SULFATE 2 MG/ML CARP IV PRN (05:27)
[2022-11-06 08:43] LABS: Basophils # (auto) 0.02 K/uL (0.00-0.20); Basophils % (auto) 0.2 %; Eosinophils # (auto) 0.05 K/uL (0.00-0.50); Eosinophils % (auto) 0.5 %; Hematocrit (blood only) 32.6 % (37.0-47.0); Hemoglobin 11.9 g/dl (12.0-16.0); Immature Granulocytes # (auto) 0.04 K/uL (0.01-0.20); Immature Granulocytes % (auto) 0.4 %; Lymphocytes # (auto) 1.23 K/uL (1.20-3.40); Lymphocytes % (auto) 12.7 %; Mean Corpuscular Hemoglobin 33.7 pg (25.0-34.0); Mean Corpuscular Hgb Conc 36.5 g/dL (32.0-36.0); Mean Corpuscular Volume 92.4 fL (80.0-100.0); Mean Platelet Volume 9.8 fL (9.4-12.4); Monocytes # (auto) 0.63 K/uL (0.11-0.59); Monocytes % (auto) 6.5 %; Neutrophils % (auto) 79.7 %; Platelet Count 115 K/uL (130-400); Red Blood Count 3.53 M/uL (4.20-5.40); White Blood Count 9.67 K/ul (4.8-10.8)
[2022-11-06] MEDS: SIMETHICONE 80 MG CHEW PO SCH ×4 (08:52→21:03)
[2022-11-06] MEDS: DOCUSATE SODIUM 100 MG CAP PO SCH ×2 (08:52→21:03)
[2022-11-06] MEDS: CETIRIZINE HCL 10 MG TABLET PO SCH (08:53)
[2022-11-06] MEDS: FERROUS SULFATE 325 MG TAB PO SCH (08:53)
[2022-11-06] MEDS: PRENATAL VITAMIN 1 TAB PO SCH (08:53)
--- NOTE | 2022-11-06 09:30 | Obstetrical Progress Note ---
Date of Service November 06, 2022 Assessment & Plan Admission and Anticipated Discharge Date Admission Date: November 05, 2022 Subjective Patient is seen and examined. She feels well, no complaints. Pain is under control with oral meds. Ambulating without dizziness Zhao in Tolerating regular diet with out N&V Flatus + BM neg Bleeding is minimal No fever/ chills/ CP/ SOB/ N&V/ Leg pain Breast feeding without problems Lab Results 11/05/22 11/05/22 11/05/22 Range/Units 09:12 09:20 13:21 WBC 9.97 (4.8-10.8) K/ul RBC 4.25 (4.20-5.40) M/uL Hgb 14.4 (12.0-16.0) g/dl Hct 39.3 (37.0-47.0) % MCV 92.5 (80.0-100.0) fL MCH 33.9 (25.0-34.0) pg MCHC 36.6 H (32.0-36.0) g/dL RDW Std Deviation 43.8 (36.4-46.3) fL RDW Coeff of Kelly 13.1 (11.5-14.5) % Plt Count 148 (130-400) K/uL MPV 10.1 (9.4-12.4) fL Immature Gran % (Auto) 0.5 % Neut % (Auto) 77.7 % Lymph % (Auto) 14.1 % [place] % (Auto) 7.1 % Eos % (Auto) 0.4 % Baso % (Auto) 0.2 % Neut # (Auto) 7.74 H (1.40-6.50) K/uL Lymph # (Auto) 1.41 (1.20-3.40) K/uL [place] # (Auto) 0.71 H (0.11-0.59) K/uL Eos # (Auto) 0.04 (0.00-0.50) K/uL Baso # (Auto) 0.02 (0.00-0.20) K/uL Immature Gran # (Auto) 0.05 (0.01-0.20) K/uL Cord ABG pH 7.29 (7.1-7.38) Cord ABG pCO2 52 (39.1-73.5) mmHg Cord ABG pO2 8 (4.1-31.7) mmHg Cord ABG HCO3 25 (19.7-28.5) mmol/L Cord ABG Base Excess -2.3 (-9-1.8) mEq/L Cord ABG O2 Sat < 60.0 (<60) % Cord VBG pH (7.20-7.44) Cord VBG pCO2 (30.4-57.2) mmHg Cord VBG pO2 (14.1-43.3) mmHg Cord VBG HCO3 (18.4-26.8) mmol/L Cord VBG Base Excess (-7.7-1.9) mEq/L Cord VBG O2 Sat (<68) % Blood Gas Comments INFANT A Blood Type O Negative Antibody Screen NEGATIVE Crossmatch See Detail 11/05/22 11/06/22 Range/Units 13:21 08:12 WBC 9.67 (4.8-10.8) K/ul RBC 3.53 L (4.20-5.40) M/uL Hgb 11.9 L (12.0-16.0) g/dl Hct 32.6 L (37.0-47.0) % MCV 92.4 (80.0-100.0) fL MCH 33.7 (25.0-34.0) pg MCHC 36.5 H (32.0-36.0) g/dL RDW Std Deviation 43.0 (36.4-46.3) fL RDW Coeff of Kelly 13.0 (11.5-14.5) % Plt Count 115 L (130-400) K/uL MPV 9.8 (9.4-12.4) fL Immature Gran % (Auto) 0.4 % Neut % (Auto) 79.7 % Lymph % (Auto) 12.7 % [place] % (Auto) 6.5 % Eos % (Auto) 0.5 % Baso % (Auto) 0.2 % Neut # (Auto) 7.70 H (1.40-6.50) K/uL Lymph # (Auto) 1.23 (1.20-3.40) K/uL [place] # (Auto) 0.63 H (0.11-0.59) K/uL Eos # (Auto) 0.05 (0.00-0.50) K/uL Baso # (Auto) 0.02 (0.00-0.20) K/uL Immature Gran # (Auto) 0.04 (0.01-0.20) K/uL Cord ABG pH (7.1-7.38) Cord ABG pCO2 (39.1-73.5) mmHg Cord ABG pO2 (4.1-31.7) mmHg Cord ABG HCO3 (19.7-28.5) mmol/L Cord ABG Base Excess (-9-1.8) mEq/L Cord ABG O2 Sat (<60) % Cord VBG pH 7.32 (7.20-7.44) Cord VBG pCO2 47 (30.4-57.2) mmHg Cord VBG pO2 19 (14.1-43.3) mmHg Cord VBG HCO3 24 (18.4-26.8) mmol/L Cord VBG Base Excess -2.2 (-7.7-1.9) mEq/L Cord VBG O2 Sat < 60.0 (<68) % Blood Gas Comments A Blood Type Antibody Screen Crossmatch Vital Signs Temp Pulse Resp BP Pulse Ox O2 Del Method 11/06/22 08:55 18 100 11/06/22 07:15 18 100 11/06/22 06:00 18 97 11/06/22 05:00 18 99 11/06/22 04:00 18 99 11/06/22 02:00 18 100 11/06/22 03:10 18 99 11/06/22 03:10 36.5 C 81 18 118/76 99 Room Air 11/06/22 01:00 18 98 11/06/22 00:00 18 98 11/05/22 23:00 18 100 11/05/22 23:10 36.9 C 84 18 115/76 100 Room Air 11/05/22 22:00 18 100 PE: General: Alert, orientedx3, NAD CVS: S1S2 RRR Lungs; CTAB Abd: soft, NT, ND, BS+, fundus firm, below Umbilicus Incision/ Dressing: Clean, dry, intact Perineum intact, Lochia rubra minimal Ext; NT, no edema AP: 32 yo s/p C Section, pod# 1 VSS Afebrile doing well Continue routine postop care Encourage ambulation, PO intake All questions were answered Results & Data Vital Signs (Past 12 Hours) Vital Signs Temp Pulse Resp BP Pulse Ox O2 Del Method 11/06/22 08:55 18 100 11/06/22 07:15 18 100 11/06/22 06:00 18 97 11/06/22 05:00 18 99 11/06/22 04:00 18 99 11/06/22 02:00 18 100 11/06/22 03:10 18 99 11/06/22 03:10 36.5 C 81 18 118/76 99 Room Air 11/06/22 01:00 18 98 11/06/22 00:00 18 98 11/05/22 23:00 18 100 11/05/22 23:10 36.9 C 84 18 115/76 100 Room Air 11/05/22 22:00 18 100
[2022-11-06] MEDS ORDERED: diphenhydrAMINE Capsule 25 MG CAP PO PRN (12:15)
[2022-11-06] MEDS ORDERED: PROMETHAZINE HCL 25 MG in SODIUM CHLORIDE 0.9% 50 ML IV PRN (12:15)
[2022-11-06] MEDS ORDERED: MEPERIDINE HCL 50 MG/ML CARP IV PRN (12:15)
[2022-11-06] MEDS ORDERED: diphenhydrAMINE 50 MG/ML VIAL IV PRN (12:15)
[2022-11-06] MEDS: oxyCODONE/ACETAMINOPHEN 5mg/325mg TAB PO PRN ×3 (12:48→22:01)
[2022-11-06] MEDS: IBUPROFEN 600 MG TAB PO PRN ×2 (12:48→17:42)
[2022-11-06] MEDS ORDERED: bisacodyL 5 MG TABEC PO SCH (20:00)
[2022-11-07] MEDS: oxyCODONE/ACETAMINOPHEN 5mg/325mg TAB PO PRN (02:14)
[2022-11-07] MEDS: IBUPROFEN 600 MG TAB PO PRN ×2 (02:15→09:02)
[2022-11-07 06:52] LABS: Hematocrit (blood only) 31.9 % (37.0-47.0); Hemoglobin 11.2 g/dl (12.0-16.0)
[2022-11-07] MEDS: SIMETHICONE 80 MG CHEW PO SCH ×2 (08:00→09:02)
[2022-11-07] MEDS: DOCUSATE SODIUM 100 MG CAP PO SCH (09:02)
[2022-11-07] MEDS: PRENATAL VITAMIN 1 TAB PO SCH (09:02)
[2022-11-07] MEDS: FERROUS SULFATE 325 MG TAB PO SCH (09:02)
[2022-11-07] MEDS: CETIRIZINE HCL 10 MG TABLET PO SCH (09:03)
--- NOTE | 2022-11-07 10:01 | Obstetrical Progress Note ---
Date of Service November 07, 2022 Assessment & Plan (1) Previous delivery affecting : POD #2 pt doing well No complaints D/c home with instructions Subjective Ambulation: ambulating normally Voiding: no voiding problems Passing Gas:: Yes Diet Tolerance:: clear liquids Lochia:: Small Feeding Type:: breast feeding Review of Systems All systems reviewed & are unremarkable except as noted in HPI & below Physical Exam Constitutional WD/WN, vitals as above well developed and well nourished Eyes PERRL, conjunctivae normal, anicteric sclerae ENMT external ear and nose normal, oropharynx normal Neck trachea midline, no thyromegaly Respiratory normal respiratory effort, lungs clear to auscultation Cardiovascular RRR, no murmur, no edema Chest (Breasts) normal inspection/palpation of breasts Gastrointestinal (Abdomen) normal bowel sounds, soft, nontender, no hepatosplenomegaly Musculoskeletal no cyanosis or clubbing, extremities motor strength 5/5 Skin no rashes, warm and dry + incision (Clean,dry and intact) Neurologic patellar DTR's 2+ bilat, sensation intact Psychiatric A+Ox3, euthymic affect Genitourinary normal external appearance Lymphatic no cervical or axillary lymphadenopathy Results & Data Vital Signs (Past 12 Hours) Vital Signs Temp Pulse Resp BP Pulse Ox O2 Del Method 11/06/22 23:00 36.2 C L 74 16 108/72 98 Room Air
[2022-11-07] MEDS ORDERED: IBUPROFEN 600 MG TAB PO PRN (12:15)
[2022-11-07] MEDS ORDERED: bisacodyL 10 MG SUPP PR PRN (13:59)
== END 2022-11-07 13:45 | disposition home or self-care (01) | DRG 788 ==
LOC: 4S1 08:51 → EDSTATUS 09:30 → 4E2 17:05